=== PATIENT | female | born 1955 | race Caucasian/White ===

== ENCOUNTER 2018-06-04 11:08 | Emergency (ER) | payer MEDICARE ==
[~2018-06-04] VITALS: Ht 172.7 cm; Wt 108.0 kg
[2018-06-04] MEDS ORDERED: TRAMADOL HCL 50 MG TAB PO ONE (11:30)
[2018-06-04] MEDS ORDERED: TETANUS/DIPHTHERIA TOX ADULT 0.5 ML SYR IM ONE (11:30)
--- NOTE | 2018-06-04 12:47 | Diagnostic Imaging Report ---
EXAMINATION: Head and cervical spine CT without contrast. HISTORY: Status post fall in bathtub, head trauma, head and neck pain COMPARISON: None. TECHNIQUE: Multidetector axial images were obtained without contrast from the foramen magnum to the vertex and through the cervical spine. The images were reconstructed using brain and bone algorithms. Thin section brain images were reformatted into coronal and sagittal planes. HEAD CT FINDINGS: Skull: No lytic or blastic lesions. No fractures. Parenchyma: Few scattered white matter hypodensities, most likely nonspecific cystic chronic microvascular ischemic changes. No mass, hemorrhage or CT evidence of acute vascular insult. Brain volume: Normal for age. Ventricles: No hydrocephalus or displacement. Arteries: No density suggestive of thrombus. Dural sinuses: No abnormal density. Extra-axial spaces: No abnormal density. Foramen magnum: No mass, Chiari malformation, or basilar invagination. Sella: No obvious mass. Paranasal/mastoid sinuses: Imaged portions unremarkable. CERVICAL SPINE CT FINDINGS: Alignment:Normal alignment and lordosis. Soft tissues: Normal. Vertebrae: Normal height and density. No acute fracture, infection or neoplasm. Degenerative changes: C1-C2: Degenerative changes without stenosis. C2-C3: Bilateral facet arthrosis without stenoses C3-C4: Disc osteophyte complex formation, uncovertebral and facet arthrosis on the left. Severe left foraminal stenoses. C4-C5: Disc osteophyte complex formation, bilateral uncovertebral and facet arthrosis. Moderate foraminal stenoses worst on the left. C5-C6: Disc osteophyte complex formation, uncovertebral and facet arthrosis. Mild right and severe left foraminal stenoses C6-C7: Disc osteophyte complex formation, uncovertebral and facet arthrosis. Mild right foraminal stenoses C7-T1: Normal IMPRESSION: Head CT: 1. No acute postraumatic intracranial hemorrhage. 2. Mild chronic microvascular ischemic changes. Cervical spine CT: 1. No acute fractures or dislocations. 2. Chronic degenerative changes as described. Note: Acute post traumatic spinal cord, vascular or ligamentous injury cannot adequately be assessed with CT. Signed by: Dr. Anette Akers M.D. on 06/04/2018 12:43 PM
--- NOTE | 2018-06-04 12:48 | Diagnostic Imaging Report ---
PROCEDURE:X-RAY PELVIS, AP VIEW COMPARISON:None. INDICATIONS:FALL FINDINGS: There are no fractures, dislocations, lytic or blastic lesions. A right femoral prosthesis is visualized. Left hip joint space narrowing. The bones are demineralized. The soft-tissues are unremarkable. CONCLUSION: No acute bony abnormality. Andrey Ordoñez D.O. Dictated by: Andrey Ordoñez D.O. on 06/04/2018 at 12:53 Electronically approved by: Andrey Ordoñez D.O. on 06/04/2018 at 12:53
--- NOTE | 2018-06-04 12:54 | Diagnostic Imaging Report ---
PROCEDURE:KNEE THREE VIEWS BILATERAL COMPARISON:None. INDICATIONS:FALL FINDINGS: There are no fractures, dislocations, lytic or blastic lesions. Total knee replacement on both knees. The bones are demineralized. The soft-tissues are unremarkable. CONCLUSION: No acute bony abnormality. Andrey Ordoñez D.O. Dictated by: Andrey Ordoñez D.O. on 06/04/2018 at 12:58 Electronically approved by: Andrey Ordoñez D.O. on 06/04/2018 at 12:58
--- NOTE | 2018-06-04 13:00 | Diagnostic Imaging Report ---
PROCEDURE: Frontal and lateral views of the chest. COMPARISON: None. INDICATIONS: FALL FINDINGS: Lines/tubes: None. Lungs: The lungs are well inflated and clear. There is no evidence of pneumonia or pulmonary edema. Pleura: There is no pleural effusion or pneumothorax. Heart and mediastinum: The heart and the mediastinum are normal. Bones: No acute bony abnormality. Mild degenerative changes in the thoracic spine. IMPRESSION: 1. No acute cardiopulmonary disease. 2. No acute displaced fracture or dislocation, however, this is not a dedicated film for evaluation of the ribs. Isma Castro M.D. Dictated by: Isma Castro M.D. on 06/04/2018 at 13:05 Electronically approved by: Isma Castro M.D. on 06/04/2018 at 13:05
[2018-06-04 15:24] VITALS: BP 117/65
== END 2018-06-04 15:20 | disposition home or self-care (01) ==
LOC: ER 11:08
DX: S00.83XA Contusion of other part of head, initial encounter (principal); S01.81XA Laceration without foreign body of other part of head, initial encounter; M54.2 Cervicalgia; S16.1XXA Strain of muscle, fascia and tendon at neck level, initial encounter; S80.02XA Contusion of left knee, initial encounter; S80.01XA Contusion of right knee, initial encounter; W01.0XXA Fall on same level from slipping, tripping and stumbling without subsequent striking against object, initial encounter; Y92.003 Bedroom of unspecified non-institutional (private) residence as the place of occurrence of the external cause; I10 Essential (primary) hypertension; E03.9 Hypothyroidism, unspecified; K21.9 Gastro-esophageal reflux disease without esophagitis; F20.9 Schizophrenia, unspecified; Z86.73 Personal history of transient ischemic attack (TIA), and cerebral infarction without residual deficits
CPT/HCPCS: 70450; 71046; 72125; 72170; 90471; 90714; 99283

== ENCOUNTER 2018-11-02 16:58 | Emergency (ER) | payer MEDICARE ==
[~2018-11-02] VITALS: Ht 172.7 cm; Wt 108.0 kg
--- OUTSIDE RECORDS SUMMARY | 2018-11-02 17:02 | XMS REPORT | Continuity of Care Document ---
Author Author [facility] Interface Address Unknown Phone Unavailable Problems Problem Status Onset Date Classification Date Reported Comments Source Hypothyroidism Active Diagnosis 10/17/2018 [facility] Osteoarthritis of right hip Active Problem 10/17/2018 [facility] Esophageal reflux Active Diagnosis 10/17/2018 [facility] Major depressive disorder with single episode, remission status unspecified Active Problem 10/17/2018 [facility] Paranoid schizophrenia Active Problem 10/17/2018 [facility] Status post carpal tunnel release Active Problem 10/17/2018 [facility] History of prediabetes Active Problem 10/17/2018 [facility] History of right hip replacement Active Problem 10/17/2018 [facility] History of stroke Active Problem 10/17/2018 [facility] History of colon cancer Active Problem 10/17/2018 [facility] Postmenopausal Active Diagnosis 06/12/2017 [facility] Snoring Active Diagnosis 06/12/2017 [facility] Essential hypertension Active Problem 10/17/2018 [facility] Obesity Active Problem 10/17/2018 [facility] BMI 37.0-37.9, adult Active Diagnosis 05/30/2017 [facility] Schizophrenia Active Diagnosis 05/30/2017 [facility] Dysuria Active Diagnosis 11/04/2017 [facility] Malignant neoplasm of colon Active Problem 03/14/2017 [facility] Other syndromes affecting cervical region Active Problem 03/14/2017 [facility] Prediabetes Active Problem 03/14/2017 [facility] Excessive daytime sleepiness Active Problem 03/14/2017 [facility] Rash Active Diagnosis 03/14/2017 [facility] Ganglion cyst Active Diagnosis 03/14/2017 [facility] Dizziness Active Diagnosis 03/14/2017 [facility] Sleep apnea syndrome Active Problem 10/17/2018 [facility] SOUMYA Active Problem 10/17/2018 [facility] OAB Active Diagnosis 10/17/2018 [facility] Dependent edema Active Diagnosis 10/17/2018 [facility] Schizophrenia, unspecified type Active Problem 10/17/2018 [facility] Obstructive sleep apnea (pediatric) Active Problem 10/17/2018 [facility] Acute cystitis without hematuria Active Diagnosis 10/17/2018 [facility] History of CVA Active Diagnosis 10/17/2018 [facility] Dependence on other enabling machines and devices Active Problem 10/17/2018 [facility] Psychophysiological insomnia Active Problem 10/17/2018 [facility] Facial pain Active Diagnosis 07/12/2018 [facility] Lumbar pain Active Diagnosis 07/12/2018 [facility] Acute UTI Active Diagnosis 11/04/2017 [facility] Recurrent major depressive disorder, in partial remission Active Diagnosis 01/09/2018 [facility] UTI symptoms Active Diagnosis 03/13/2018 [facility] Lumbar back pain Active Diagnosis 09/27/2017 [facility] Pelvic pain Active Diagnosis 09/27/2017 [facility] Encounter for screening mammogram for malignant neoplasm of breast Active Diagnosis 09/27/2017 [facility] Encntr for general adult medical exam w/o abnormal findings Active Diagnosis 09/27/2017 [facility] Encounter for screening colonoscopy Active Diagnosis 09/27/2017 [facility] Depression Active Diagnosis 04/23/2016 [facility] Migraines Active Diagnosis 04/23/2016 [facility] Morbid obesity Active Diagnosis 04/23/2016 [facility] Body mass index of 40.1 to 44.9 in adult Active Diagnosis 04/23/2016 [facility] Preoperative clearance Active Diagnosis 04/23/2016 [facility] Skin infection Active Diagnosis 05/22/2016 [facility] S/P hip replacement Active Diagnosis 05/22/2016 [facility] Medications Medication Details Route Status Patient Instructions Ordering Provider Order Date Source Lasix 1 tablet Orally Active 20 mg Orally Once a day prn [facility] Burch 10/12/2018 [facility] Bactrim DS 1 tablet Orally Active 800-160 MG Orally Twice a day Olivier Burch 09/15/2018 [facility] Bactrim DS 1 tablet Orally Active 800-160 MG Orally Twice a day Martir 03/10/2018 [facility] Macrobid 1 capsule with food Orally Active 100 mg Orally twice a day Mike 10/31/2017 [facility] Cipro 1 tablet Orally Active 250 MG Orally every 12 hrs Mikey 05/27/2017 [facility] Clindamycin HCl 1 capsule Orally Active 300 MG Orally every 8 hrs Basurto 05/17/2016 [facility] [place] 3 1 capsule Orally Active 120-180 MG Orally Once a day Olivier Burch [facility] VESIcare 1 tablet Orally Active 10 MG Orally Once a day Olivier Burch [facility] Tramadol HCl 1 tablet on the tongue and allow to dissolve as needed Orally Active 50 MG Orally every four hours Olivier Burch [facility] Trazodone HCl 1 tablet at bedtime Orally Active 100 MG Orally Once a day Olivier Burch [facility] Horizant 1 tablet in the evening with food Orally Active 600 MG Orally Once a day Olivier Burch [facility] Aggrenox 1 capsule Orally Active 25-200 MG Orally once a day Martir [facility] Pantoprazole Sodium 1 tablet Orally Active 40 MG Orally Once a day Olivier Burch [facility] Aripiprazole 1 tablet Orally Active 30 MG Orally Once a day Olivier Burch [facility] Synthroid 1 tablet on an empty stomach in the morning Fri- Fri, 2 on Sun Orally Active 100 MCG Orally Once a day Mikey [facility] Multivitamin Adult not defined Orally Active - Orally [facility] Burch [facility] Verapamil HCl 1 tablet Orally Active 120 MG Orally daily Oliv[facility] Burch [facility] Topiramate 1 tablet Orally Active 50 MG Orally twice a day (bid) Olivier Burch [facility] Lorazepam 1 tablet as needed Orally Active 0.5 MG Orally every 6 hrs [facility] Cogentin 1 tablet at bedtime Orally Active 1 MG Orally once every night Oliv[facility] Burch [facility] Benztropine Mesylate 1 tablet at bedtime Orally Active 1 MG Orally Once a day [facility] Alive Womens 50+ not defined Orally Active Orally [facility] Cephalexin 1 capsule Orally Active 500 mg Orally Four times a day Carlos [facility] Hydrocodone-Acetaminophen 1 tablet as needed Orally Active 7.5- 325 MG Orally every 6 hrs [facility] Meloxicam 1 tablet Orally Active 15 MG Orally Once a day [facility] Potassium Chloride 1 capsule with food Orally Active 10 MEQ Orally Twice a day [facility] Topamax 1 tablet at bedtime Orally Active 100 MG Orally Once a day [facility] Aripiprazole 1 tablet Orally Active 10 MG Orally Once a day [facility] Zoloft 1 tablet Orally Active 50 MG Orally Once a day [facility] Trifluoperazine HCl 1 tablet Orally Active 5 MG Orally Once a day [facility] Topiramate 1 tablet Orally Active 100 MG Orally once every night [facility] Butalbital-Acetaminophen 1 tablet as needed Orally Active 50- 325 MG Orally every 4 hrs [facility] Ativan 1 tablet at bedtime as needed Orally Active 0.5 MG Orally Once a day [facility] B Complex not defined Orally Active Orally [facility] Lorazepam 1 tablet as needed Orally Active 0.5 MG Orally every 6 hrs [facility] Aripiprazole 1 tablet Orally Active 30 MG Orally Once a day [facility] Burch [facility] Topiramate 1 tablet Orally Active 50 MG Orally twice a day (bid) [facility] VESIcare 1 tablet Orally Active 10 MG Orally Once a day Oliv[facility] B[facility] Aggrenox 1 capsule Orally Active 25-200 MG Orally once a day Olivier Burch [facility] Synthroid 1 tablet on an empty stomach in the morning Fri- Fri, 2 on Sun Orally Active 100 MCG Orally Once a day [facility] Multivitamin Adult not defined Orally Active - Orally [facility] Calcium 1 tab Oral Active Oral [facility] Pantoprazole Sodium 1 tablet Orally Active 40 mg Orally twice a day (bid) [facility] Verapamil HCl 1 tablet Orally Active 120 MG Orally daily [facility] [place] Carbonate ER TK 2 TS PO HS Oral Active 300 MG Oral [facility] Duloxetine HCl 1 capsule Orally Active 30 mg Orally once a day [facility] Topiramate 1 tablet Orally Active 50 mg Orally twice a day (bid) [facility] Benztropine Mesylate TK 1 T PO QHS Oral Active 1 MG Oral [facility] Lyrica (Schedule V Drug) TK ONE C PO TID Orally Active 75 MG Orally twice a day (bid) [facility] Metoprolol Tartrate TAKE 1 T PO QAM Oral Active 25 MG Oral [facility] Trazodone HCl TAKE 1 T PO QHS Oral Active 100 mg Oral [facility] [place] Carbonate ER TK 2 TS PO HS Oral Active 300 MG Oral [facility] Lyrica (Schedule V Drug) TK ONE C PO TID Oral Active 50 mg Oral three times a day (tid) [facility] Duloxetine HCl 1 capsule Orally Active 30 mg Orally once a day [facility] Lyrica (Schedule V Drug) TK ONE C PO TID Oral Active 50 mg Oral three times a day (tid) Olivier [facility] [place] Carbonate ER TK 2 TS PO HS Oral Active 300 MG Oral Martir [facility] Topiramate 1 tablet Orally Active 50 mg Orally twice a day (bid) Martir [facility] Pristiq 1 tablet Orally Active 50 MG Orally Once a day [facility] Limbitrol 1 tablet Orally Active 5-12.5 MG Orally Twice a day [facility] Topamax 1 tablet at bedtime Orally Active 25 MG Orally Once a day Basurtocaity [facility] Lexapro 1 tablet Orally Active 20 mg Orally Once a day [facility] Cogentin 1 tablet at bedtime Orally Active 1 MG Orally Once a day Sb [facility] Nuedexta 1 capsule Orally No Longer Active 20-10 MG Orally every 12 hrs [facility] Diazepam & Diet Manage Prod Unknown Orally Active 5 MG Orally every day (qd) [facility] Ritalin 1 tablet Orally Active 10 MG Orally Twice a day [facility] Allergies, Adverse Reactions, Alerts Substance Category Reaction Severity Reaction type Status Date Reported Comments Source Zithromax Z-Lupillo Adverse Reaction Info Not Available Adverse Reaction Active 10/12/2018 [facility] Risperdal Adverse Reaction Info Not Available Adverse Reaction Active 10/12/2018 [facility] Iodine Adverse Reaction Info Not Available Adverse Reaction Active 10/12/2018 [facility] SHELLFISH Adverse Reaction Info Not Available Adverse Reaction Active 10/12/2018 [facility] Immunizations Immunization Date Given Site Status Last Updated Comments Source Results Order Name Results Value Reference Range Date Interpretation Comments Source Vital Signs Vital Sign Value Date Comments Source Weight 236 10/12/2018 [facility] Height 67 10/12/2018 [facility] Heart Rate 68 10/12/2018 [facility] Diastolic (mm Hg) 82 10/12/2018 [facility] Systolic (mm Hg) 134 10/12/2018 [facility] Weight 227 09/15/2018 [facility] Height 67 09/15/2018 [facility] Temperature Oral (F) 98.2 F 09/15/2018 [facility] Heart Rate 63 09/15/2018 [facility] Diastolic (mm Hg) 74 09/15/2018 [facility] Systolic (mm Hg) 134 09/15/2018 [facility] Weight 237 06/03/2018 [facility] Height 67 06/03/2018 [facility] Heart Rate 59 06/03/2018 [facility] Diastolic (mm Hg) 74 06/03/2018 [facility] Systolic (mm Hg) 128 06/03/2018 [facility] Weight 233 03/10/2018 [facility] Height 67 03/10/2018 [facility] Heart Rate 60 03/10/2018 [facility] Diastolic (mm Hg) 60 03/10/2018 [facility] Systolic (mm Hg) 130 03/10/2018 [facility] Weight 231 01/05/2018 [facility] Height 67 01/05/2018 [facility] Heart Rate 62 01/05/2018 [facility] Diastolic (mm Hg) 62 01/05/2018 [facility] Systolic (mm Hg) 112 01/05/2018 [facility] Weight 221 10/31/2017 [facility] Height 67 10/31/2017 [facility] Heart Rate 58 10/31/2017 [facility] Diastolic (mm Hg) 65 10/31/2017 [facility] Systolic (mm Hg) 130 10/31/2017 [facility] Weight 221 10/27/2017 [facility] Height 67 10/27/2017 [facility] Heart Rate 72 10/27/2017 [facility] Diastolic (mm Hg) 62 10/27/2017 [facility] Systolic (mm Hg) 130 10/27/2017 [facility] Weight 233 09/25/2017 [facility] Height 67 09/25/2017 [facility] Heart Rate 79 09/25/2017 [facility] Diastolic (mm Hg) 56 09/25/2017 [facility] Systolic (mm Hg) 138 09/25/2017 [facility] Weight 243 06/10/2017 [facility] Height 67 06/10/2017 [facility] Heart Rate 75 06/10/2017 [facility] Diastolic (mm Hg) 78 06/10/2017 [facility] Systolic (mm Hg) 142 06/10/2017 [facility] Weight 241 05/27/2017 [facility] Height 67 05/27/2017 [facility] Heart Rate 62 05/27/2017 [facility] Diastolic (mm Hg) 58 05/27/2017 [facility] Systolic (mm Hg) 120 05/27/2017 [facility] Weight 244 03/12/2017 [facility] Height 67 03/12/2017 [facility] Heart Rate 68 03/12/2017 [facility] Diastolic (mm Hg) 72 03/12/2017 [facility] Systolic (mm Hg) 124 03/12/2017 [facility] Weight 243 08/23/2016 [facility] Height 67 08/23/2016 [facility] Heart Rate 79 08/23/2016 [facility] Diastolic (mm Hg) 82 08/23/2016 [facility] Systolic (mm Hg) 138 08/23/2016 [facility] Weight 264 05/17/2016 [facility] Height 67 05/17/2016 [facility] Heart Rate 70 05/17/2016 [facility] Diastolic (mm Hg) 78 05/17/2016 [facility] Systolic (mm Hg) 150 05/17/2016 [facility] Weight 262 04/17/2016 [facility] Height 67 04/17/2016 [facility] Heart Rate 65 04/17/2016 [facility] Diastolic (mm Hg) 78 04/17/2016 [facility] Systolic (mm Hg) 140 04/17/2016 [facility] Encounters Location Location Details Encounter Type Encounter Number Reason For Visit Attending Provider ADM Date DC Date Status Source [facility] Physical & Medical clearance [id number] 04/17/2016 04/17/2016 [facility] Physical & Medical clearance [id number] 04/17/2016 04/17/2016 [facility] Physical & Medical clearance [id number] 04/17/2016 04/17/2016 [facility] Physical & Medical clearance [id number] 04/17/2016 04/17/2016 [facility] Physical & Medical clearance [id number] 04/17/2016 04/17/2016 [facility] SX clearance [id number] 04/18/2016 04/18/2016 [facility] SX clearance [id number] 04/18/2016 04/18/2016 [facility] SX clearance [id number] 04/18/2016 04/18/2016 [facility] possible hip infection (pt had a hip replacement) [id number] 05/17/2016 05/17/2016 [facility] possible hip infection (pt had a hip replacement) [id number] 05/17/2016 05/17/2016 [facility] Severe Pain [id number] 08/23/2016 08/23/2016 [facility] Procedures Procedure Code Date Perfomer Comments Source
--- OUTSIDE RECORDS SUMMARY | 2018-11-02 17:03 | XMS REPORT ---
Author Author Morgan Chand [facility] eClinicalWorks Address Unknown Phone Unavailable Care Team Providers Care Manager Of Broadcast Content Name Role Phone Morgan Chand Unavailable Allergies, Adverse Reactions, Alerts Substance Reaction Event Type Zithromax Z-Lupillo Info Not Available Drug Allergy Risperdal Info Not Available Drug Allergy Iodine Info Not Available Drug Allergy SHELLFISH Info Not Available Non Drug Allergy Problems Problem Type Condition Code Onset Dates Condition Status Problem History of stroke Z86.73 Active Problem Paranoid schizophrenia F20.0 Active Problem History of prediabetes Z87.898 Active Problem Dependence on other enabling machines and devices Z99.89 Active Problem Psychophysiological insomnia F51.04 Active Problem Obstructive sleep apnea (adult) (pediatric) G47.33 Active Problem Major depressive disorder with single episode, remission status unspecified F32.9 Active Problem Status post carpal tunnel release Z98.890 Active Problem SOUMYA (obstructive sleep apnea) G47.33 Active Problem Sleep apnea syndrome G47.30 Active Assessment Facial pain R51 Active Problem Obesity E66.9 Active Assessment Lumbar pain M54.5 Active Problem Esophageal reflux K21.9 Active Problem Osteoarthritis of right hip M16.11 Active Problem Hypothyroidism E03.9 Active Problem History of right hip replacement Z96.641 Active Problem Essential hypertension I10 Active Problem History of colon cancer Z85.038 Active Medications Medication Code System Code Instructions Start Date End Date Status Dosage [place] Carbonate ER [facility] 09919405183 300 MG Oral Active TK 2 TS PO HS Aripiprazole [facility] 47072588431 30 MG Orally Once a day Active 1 tablet VESIcare [facility] 60990461626 10 MG Orally Once a day Active 1 tablet Multivitamin Adult [facility] 47207189809 - Orally Active not defined Lorazepam [facility] 49246415655 0.5 MG Orally every 6 hrs Active 1 tablet as needed Topiramate [facility] 50080669443 50 mg Orally twice a day (bid) Active 1 tablet Synthroid [facility] 32726769332 100 MCG Orally Once a day Active 1 tablet on an empty stomach in the morning Mon-Fri, 2 on Sun Aggrenox [facility] 85364799239 25-200 MG Orally once a day Active 1 capsule Calcium NDC 0 Oral Active 1 tab Cogentin [facility] [address]-34 1 MG Orally once every night Active 1 tablet at bedtime Lyrica [facility] 43462619948 50 mg Oral three times a day (tid) Active (Schedule V Drug) TK ONE C PO TID Duloxetine HCl [facility] 08744959670 30 mg Orally once a day Active 1 capsule Pantoprazole Sodium [facility] 06365738223 40 MG Orally Once a day Active 1 tablet Vital Signs Date/Time: June 03, 2018 BMI 37.12 Index Weight 237 lbs Height 67 in Cardiac Monitoring Heart Rate 59 /min Blood Pressure Diastolic 74 mm Hg Blood Pressure Systolic 128 mm Hg Results No Known Results Summary Purpose eClinicalWorks Submission
--- OUTSIDE RECORDS SUMMARY | 2018-11-02 17:03 | XMS REPORT ---
Author Author Alfreda Veras [facility] eClinicalWorks Address Unknown Phone Unavailable Care Team Providers Care Grounds Crew Supervisor Name Role Phone Alfreda Veras CP Unavailable Allergies, Adverse Reactions, Alerts Substance Reaction Event Type Zithromax Z-Lupillo Info Not Available Drug Allergy Risperdal Info Not Available Drug Allergy Iodine Info Not Available Drug Allergy SHELLFISH Info Not Available Non Drug Allergy Problems Problem Type Condition Code Onset Dates Condition Status Problem History of prediabetes Z87.898 Active Problem Status post carpal tunnel release Z98.890 Active Problem Paranoid schizophrenia F20.0 Active Problem Obstructive sleep apnea (adult) (pediatric) G47.33 Active Assessment Hypothyroidism E03.9 Active Problem Dependence on other enabling machines and devices Z99.89 Active Assessment Acute cystitis without hematuria N30.00 Active Problem Schizophrenia, unspecified type F20.9 Active Problem Sleep apnea syndrome G47.30 Active Problem Major depressive disorder with single episode, remission status unspecified F32.9 Active Problem Psychophysiological insomnia F51.04 Active Problem SOUMYA (obstructive sleep apnea) G47.33 Active Problem Obesity E66.9 Active Problem Hypothyroidism E03.9 Active Assessment Schizophrenia, unspecified type F20.9 Active Problem Osteoarthritis of right hip M16.11 Active Problem History of right hip replacement Z96.641 Active Problem Essential hypertension I10 Active Problem History of colon cancer Z85.038 Active Problem Esophageal reflux K21.9 Active Problem History of stroke Z86.73 Active Medications Medication Code System Code Instructions Start Date End Date Status Dosage Pantoprazole Sodium ND 43089739260 40 MG Orally Once a day Active 1 tablet Topiramate ND 10406387802 50 mg Orally twice a day (bid) Active 1 [place] [address]-98 1 MG Orally once every night Active 1 tablet at bedtime Lyrica ND 76887682422 50 mg Oral three times a day (tid) Active (Schedule V Drug) TK ONE C PO TID Lorazepam ND 48964633195 0.5 MG Orally every 6 hrs Active 1 tablet as needed Aggrenox [facility] 23978565080 25-200 MG Orally once a day Active 1 capsule [place] Carbonate ER ND 60809756165 300 MG Oral Active TK 2 TS PO HS Synthroid ND 12083102759 100 MCG Orally Once a day Active 1 tablet on an empty stomach in the morning Mon-Fri, 2 on Sun Multivitamin Adult ND 26602629644 - Orally Active not defined Aripiprazole ND 02060650040 30 MG Orally Once a day Active 1 tablet Synthroid ND 39013228481 100 MCG Orally Once a day Active 1 tablet on an empty stomach in the morning Fri-Fri, 2 on Sun Calcium NDC 0 Oral Active 1 tab Bactrim DS [facility] 32416837714 800-160 MG Orally Twice a day Sep 15, 2018 Sep 25, 2018 Active 1 tablet VESIcare [facility] 15352321392 10 MG Orally Once a day Active 1 tablet Duloxetine HCl [facility] 92847577657 30 mg Orally once a day Active 1 capsule Vital Signs Date/Time: Sep 15, 2018 BMI 35.55 Index Weight 227 lbs Height 67 in Temperature 98.2 F Cardiac Monitoring Heart Rate 63 /min Blood Pressure Diastolic 74 mm Hg Blood Pressure Systolic 134 mm Hg Results Name Result Date Reference Range Unit Abnormality Flag URINE AUTO W/O SCOPE ----Spec [place] 1.025 20180920 ----Turbidity cloudy 20180920 ----Glucose neg 20180920 ----Ketones small 20180920 ----Blood small+ 20180920 ----Bili small+ 20180920 ----Color yellow 20180920 ----pH 6.0 20180920 ----Leuk Est small+ 20180920 ----Nitrite positive 20180920 ----Urobilinogen 0.2 20180920 ----Protein trace [id number] Urine Culture, Routine ----Result 1 Escherichia coli [id number] ----Antimicrobial Susceptibility Comment [id number] ----Urine Culture, Routine Final report [id number] A Summary Purpose eClinicalWorks Submission
--- OUTSIDE RECORDS SUMMARY | 2018-11-02 17:03 | XMS REPORT | Summary of Care ---
Author Author MARY Cruz, RUTHIE Organization Unknown Address Unknown Phone Unavailable Care Team Providers Care Cv Tech Name Role Phone DE MORGAN Verduzco, PHD, JOSEPH Unavailable Unavailable MARY Cruz, RUTHIE Unavailable Unavailable [facility] Unavailable Unavailable GUZMAN [employer] [place], FLORESITA Unavailable Unavailable Unavailable Unavailable Functional Status Name Dates Details Functional status health issues are not documented Status: Name Dates Details Cognitive status health issues are not documented Status: Problems Name Dates Details Dizziness (780.4, R42) Status: Active Excessive daytime sleepiness (780.54, G47.19) Status: Active Obesity (278.00, E66.9) Status: Active Obstructive sleep apnea (327.23, G47.33) Status: Active Painful hip (719.45, M25.559) Status: Active Preoperative clearance (V72.84, Z01.818) Status: Active Thyroid disorder (246.9, E07.9) Status: Active Influenza vaccination declined (V64.06, Z28.21) Status: Active Refuses tetanus, diphtheria, and acellular pertussis (Tdap) vaccination (V64.06, Z28.21) Status: Active Psychotic episode (298.9, F23) Status: Active Schizoaffective disorder (295.70, F25.9) Status: Active Medications Name Dates Details Protonix 40 MG Oral Packet Active Multi Vitamin/Minerals TABS * Refills: 0 Active Stool Softener 100 MG Oral Capsule TAKE 1 CAPSULE TWICE DAILY NEEDED. * Refills: 0 * Start : 19-Apr-2016 Active Topamax 50 MG Oral Tablet TAKE 1 TABLET TWICE DAILY. * Quantity: 60 Refills: 0 * Start : 19-Apr-2016 Active Synthroid 100 MCG Oral Tablet TAKE 1 TABLET DAILY. * Refills: 0 * Start : 25-Apr-2016 Active VESIcare 10 MG Oral Tablet * Refills: 0 Active ARIPiprazole 30 MG Oral Tablet TAKE 1 TABLET BY MOUTH EVERY DAY * Quantity: 90 Refills: 0 RUIZ M.D., PHD, JOSEPH * Start : 11-Feb-2017 Active TraMADol HCl - 50 MG Oral Tablet TAKE 1 TABLET 3 TIMES DAILY NEEDED. * Refills: 0 Active Lyrica 50 MG Oral Capsule * Refills: 0 Active Duexis 800-26.6 MG Oral Tablet * Refills: 0 Active Sulfamethoxazole-Trimethoprim 800-160 MG Oral Tablet * Refills: 0 Active [place] 10-325 MG Oral Tablet * Refills: 0 Active Abilify Maintena 400 MG Intramuscular Suspension Reconstituted ER Administer 1 shot every four weeks, 400 mg, to be administered at [facility] * Quantity: 1 Refills: 3 RUIZ M.D., PHD, JOSEPH * Start : 01-Oct-2018 Active Abilify Maintena 400 MG Intramuscular Suspension Reconstituted ER Administer 1 shot every four weeks, 400 mg, to be administered at [facility] * Quantity: 1 Refills: 3 RUIZ M.D., PHD, JOSEPH * Start : 20-Oct-2018 Active Allergies and Adverse Reactions Name Dates Details RisperDAL TABS (Allergy) Status: Active Shellfish-derived Products (Allergy) Status: Active Past Medical History Name Dates Details History of Colon Cancer (V10.05) Status: Resolved History of Depressive disorder (311, F32.9) Status: Resolved History of esophageal reflux (V12.79, Z87.19) Status: Resolved History of essential hypertension (V12.59, Z86.79) Status: Resolved History of Schizophrenia (V11.0) Status: Resolved History of Stroke syndrome Status: Resolved Procedures Procedure Dates Details History of Knee Surgery Completed History of Colon Surgery Completed History of Tubal Ligation Completed History of Surgically Induced Completed Immunization Name Dates Details Fluzone Quadrivalent 0.5 ML Intramuscular Suspension Comments: DECLINED Tdap (Boostrix) Comments: DECLINED Family History Name Dates Details Family history of Depression Comments: Family History Status: Active Family history of Colon Cancer (V16.0) Comments: Family History Status: Active Family history of Leukemia (V16.6) Comments: Family History Status: Active Family history of Rheumatoid Arthritis Comments: Family History Status: Active Family history of Hypertension (V17.49) Comments: Family History Status: Active Name Dates Details No pertinent family history (V49.89, Z78.9) Status: Active Social History Name Dates Details - Status: Name Dates Details Former smoker Never smoker Vital Signs Date Test Result Details [id number] BP Systolic 149 mm[Hg] Status: BP Diastolic 79 mm[Hg] Status: Height 68 in Status: Weight 234 lb Status: Body Mass Index Calculated 35.58 kg/m2 Status: Body Surface Area Calculated 2.18 m2 Status: Heart Rate 118 /min Status: Results Date Description Value Details Results not documented Plan of Care Name Dates Details Planned Observations Planned Goals not documented Instructions Name Dates Details Instructions not documented Encounters Appointment; NGHIA GRIFFIN M.D. Encounter Diagnosis: Problem not documented On: 11-Dec-2016 9:30 Appointment; NGHIA GRIFFIN M.D. Encounter Diagnosis: Problem not documented On: 11-Feb-2017 15:00 Appointment; LOGAN DRISCOLL M.D. Encounter Diagnosis: Problem not documented On: 03-Apr-2017 9:30 Appointment; LOGAN DRISCOLL M.D. Encounter Diagnosis: Problem not documented On: 03-Apr-2017 12:00 Appointment; STEPHANIE GOMEZ Encounter Diagnosis: Problem not documented On: 09-Apr-2017 14:00 Appointment; RUTHIE HERNANDEZ NP Encounter Diagnosis: Problem not documented On: 10-Apr-2017 13:30 Appointment; NGHIA GRIFFIN M.D. Encounter Diagnosis: Problem not documented On: 16-Apr-2017 8:00 Appointment; NGHIA GRIFFIN M.D. Encounter Diagnosis: Problem not documented On: 13-May-2017 11:30 Appointment; LOGAN DRISCOLL M.D. Encounter Diagnosis: Problem not documented On: 15-May-2017 15:00 Appointment; FLORESITA GUZMAN LCSW Encounter Diagnosis: Problem not documented On: 11-Jun-2017 10:45 Appointment; FLORESITA GUZMAN LCSW Encounter Diagnosis: Problem not documented On: 25-Jun-2017 12:00 Appointment; FLORESITA GUZMAN LCSW Encounter Diagnosis: Problem not documented On: 03-Jul-2017 8:45 Appointment; FLORESITA GUZMAN [employer] TRA[employer]ER Encounter Diagnosis: Problem not documented On: 17-Jul-2017 11:00 Appointment; FLORESITA GUZMAN LCSW Encounter Diagnosis: Problem not documented On: 15-Aug-2017 12:45 Appointment; FLORESITA GUZMAN LCSW Encounter Diagnosis: Problem not documented On: 20-Aug-2017 8:45 Appointment; FLORESITA GUZMAN LCSW Encounter Diagnosis: Problem not documented On: 27-Aug-2017 10:15 Appointment; NGHIA GRIFFIN M.D. Encounter Diagnosis: Problem not documented On: 22-Sep-2017 10:30 Appointment; FLORESITA GUZMAN LCSW Encounter Diagnosis: Problem not documented On: 13-Oct-2017 12:00 Appointment; NGHIA GRIFFIN M.D. Encounter Diagnosis: Problem not documented On: 04-Nov-2017 15:30 Appointment; LOGAN DRISCOLL M.D. Encounter Diagnosis: Problem not documented On: 13-Nov-2017 13:30 Appointment; JOHNATHON MONROE LCSW Encounter Diagnosis: Problem not documented On: 16-Dec-2017 14:00 Appointment; NGHIA GRIFFIN M.D. Encounter Diagnosis: Problem not documented On: 22-Dec-2017 8:30 Appointment; JOHNATHON MONROE LCSW Encounter Diagnosis: Problem not documented On: 14-Jan-2018 11:00 Appointment; NGHIA GRIFFIN M.D. Encounter Diagnosis: Problem not documented On: 24-Feb-2018 11:30 Appointment; NGHIA GRIFFIN M.D. Encounter Diagnosis: Problem not documented On: 25-Feb-2018 8:30 Appointment; NGHIA GRIFFIN M.D. Encounter Diagnosis: Problem not documented On: 02-Mar-2018 10:00 Appointment; JOHNATHON MONROE LCSW Encounter Diagnosis: Problem not documented On: 03-Mar-2018 17:00 Appointment; NGHIA GRIFFIN M.D. Encounter Diagnosis: Problem not documented On: 09-Mar-2018 9:00 Appointment; NGHIA GRIFFIN M.D. Encounter Diagnosis: Problem not documented On: 23-Mar-2018 10:30 Appointment; JOHNATHON MONROE LCSW Encounter Diagnosis: Problem not documented On: 07-Apr-2018 14:00 Appointment; NGHIA GRIFFIN M.D. Encounter Diagnosis: Problem not documented On: 18-May-2018 10:00 Appointment; JOHNATHON MONROE LCSW Encounter Diagnosis: Problem not documented On: 19-Jun-2018 9:00 Appointment; JOHNATHON MONROE LCSW Encounter Diagnosis: Problem not documented On: 10-Jul-2018 13:00 Appointment; NGHIA GRIFFIN M.D. Encounter Diagnosis: Problem not documented On: 21-Jul-2018 10:00 Appointment; JOHNATHON MONROE LCSW Encounter Diagnosis: Problem not documented On: 18-Aug-2018 13:00 Appointment; RUTHIE HERNANDEZ NP Encounter Diagnosis: Problem not documented On: 03-Sep-2018 12:00
--- OUTSIDE RECORDS SUMMARY | 2018-11-02 17:03 | XMS REPORT ---
[facility] Address Unknown Phone Unavailable Care Team Providers Care Special Needs Teacher Name Role Phone Michelle BRAVO Unavailable Unavailable Payers Payer Name Policy Type Policy Number Effective Date Expiration Date Problems This patient has no known problems. Allergies, Adverse Reactions, Alerts Allergy Name Allergy Type Status Severity Reaction(s) Onset Date Inactive Date Treating Clinician Comments iodine DA Active OR 2018-08-21 00:00:00 risperidone DA Active OR 2018-08-21 00:00:00 shellfish derived DA Active SV 2018-08-21 00:00:00 iodine DA Active OR 2016-02-25 00:00:00 risperidone DA Active OR 2016-02-25 00:00:00 shellfish derived DA Active SV 2016-02-25 00:00:00 Medications This patient has no known medications. Results Test Description Test Time Test Comments Text Results Atomic Results Result Comments CHEST 2 VIEWS 2018-06-04 13:05:00 [place] [address] Patient Name: ARACELI KAYE MR #: [id number] : 1955 Age/Sex: 63/F Req #: [id number] Adm Physician: Ordered by: ULISES LANCASTER W[employer]SHIELD REPAIR TECHNICIAN Report #: [id number] Location: ER Room/Bed: Procedure: [id number] DX/CHEST 2 VIEWS Exam Date: 06/04/18 Exam Time: 1200 REPORT STATUS: Signed PROCEDURE: Frontal and lateral views of the chest. COMPARISON: None. INDICATIONS: FALL FINDINGS: Lines/tubes: None. Lungs: The lungs are well inflated and clear. There is no evidence of pneumonia or pulmonary edema. Pleura: There is no pleural effusion or pneumothorax. Heart and mediastinum: The heart and the mediastinum are normal. Bones: No acute bony abnormality. Mild degenerative changes in the thoracic spine. IMPRESSION: 1. No acute cardiopulmonary disease. 2. No acute displaced fracture or dislocation, however, this is not a dedicated film for evaluation of the ribs. Allison Castro M.D. Dictated by: Allison Castro M.D. on 06/04/2018 at 13:05 Electronically approved by: Allison Castro M.D. on 06/04/2018 at 13:05 Dictated By: ALLISON CASTRO MD 1305 Transcribed By: SHELDON on 06/04/18 1305 COPY TO: ULISES LANCASTER WINDSHIELD REPAIR TECHNICIAN KNEE THREE VIEWS BILATERAL 2018-06-04 12:58:00 [place] [address] Patient Name: ARACELI KAYE MR #: [id number] : 1955 Age/Sex: 63/F Req #: [id number] Adm Physician: Ordered by: ULISES LANCASTER W[employer]SHIELD REPAIR TECHNICIAN Report #: [id number] Location: ER Room/Bed: Procedure: [id number] DX/KNEE THREE VIEWS BILATERAL Exam Date: 06/04/18 Exam Time: 1200 REPORT STATUS: Signed PROCEDURE: KNEE THREE VIEWS BILATERAL COMPARISON: None. INDICATIONS: FALL FINDINGS: There are no fractures, dislocations, lytic or blastic lesions. Total knee replacement on both knees. The bones are demineralized. The soft-tissues are unremarkable. CONCLUSION: No acute bony abnormality. Denise Ordoñez D.O. Dictated by: Denise Ordoñez D.O. on 06/04/2018 at 12:58 Electronically approved by: Denise Ordoñez D.O. on 06/04/2018 at 12:58 Dictated By: DENISE ORDOÑEZ DO 1258 Transcribed By: SHELDON on 06/04/18 1258 COPY TO: ULISES LANCASTER NP PELVIS AP 1-2 VIEWS 2018-06-04 12:53:00 [place] [address] Patient Name: ARACELI KAYE MR #: [id number] : 1955 Age/Sex: 63/F Req #: [id number] [facility] Physician: Ordered by: ULISES LANCASTER NP Report #: [id number] Location: ER Room/Bed: Procedure: DX/PELVIS AP 1-2 VIEWS Exam Date: 06/04/18 Exam Time: 1200 REPORT STATUS: Signed PROCEDURE: X-RAY PELVIS, AP VIEW COMPARISON: None. INDICATIONS: FALL FINDINGS: There are no fractures, dislocations, lytic or blastic lesions. A right femoral prosthesis is visualized. Left hip joint space narrowing. The bones are demineralized. The soft-tissues are unremarkable. CONCLUSION: No acute bony abnormality. Denise Ordoñez D.O. Dictated by: Denise Ordoñez D.O. on 06/04/2018 at 12:53 Electronically approved by: Denise Ordoñez D.O. on 06/04/2018 at 12:53 Dictated By: DENISE ORDOÑEZ DO 1253 Transcribed By: SHELDON on 06/04/18 1253 COPY TO: ULISES LANCASTER W[employer]SHIELD REPAIR TECHNICIAN CT CERVICAL SPINE WO 2018-06-04 12:39:00 [place] [address] Patient Name: ARACELI KAYE MR #: [id number] : 1955 Age/Sex: 63/F Req #: [id number] Adm Physician: Ordered by: ULISES LANCASTER W[employer]SHIELD REPAIR TECHNICIAN Report #: [id number] Location: ER Room/Bed: Procedure: [id number] CT/CT CERVICAL SPINE WO Exam Date: 06/04/18 Exam Time: 1150 REPORT STATUS: Signed ADDENDUM #1 Dose modulation, iterative reconstruction, and/or weight based adjustment of the mA/kV was utilized to reduce the radiation dose to as low as reasonably achievable. Signed by: Dr. Anibal Akers M.D. on 07/07/2018 11:52 AM ORIGINAL REPORT EXAMINATION: Head and cervical spine CT without contrast. HISTORY: Status post fall in bathtub, head trauma, head and neck pain COMPARISON: None. TECHNIQUE: Multidetector axial images were obtained without contrast from the foramen magnum to the vertex and through the cervical spine. The images were reconstructed using brain and bone algorithms. Thin section brain images were reformatted into coronal and sagittal planes. HEAD CT FINDINGS: Skull: No lytic or blastic lesions. No fractures. Parenchyma: Few scattered white matter hypodensities, most likely nonspecific cystic chronic microvascular ischemic changes. No mass, hemorrhage or CT evidence of acute vascular insult. Brain volume: Normal for age. Ventricles: No hydrocephalus or displacement. Arteries: No density suggestive of thrombus. Dural sinuses: No abnormal density. Extra-axial spaces : No abnormal density. Foramen magnum: No mass, Chiari malformation, or basilar invagination. Sella: No obvious mass. Paranasal/mastoid sinuses: Imaged portions unremarkable. CERVICAL SPINE CT FINDINGS: Alignment:Normal alignment and lordosis. Soft tissues: Normal. Vertebrae: Normal height and density. No acute fracture, infection or neoplasm. Degenerative changes: C1-C2: Degenerative changes without stenosis. C2-C3: Bilateral facet arthrosis without stenoses C3-C4: Disc osteophyte complex formation, uncovertebral and facet arthrosis on the left. Severe left foraminal stenoses. C4-C5: Disc osteophyte complex formation, bilateral uncovertebral and facet arthrosis. Moderate foraminal stenoses worst on the left. C5-C6: Disc osteophyte complex formation, uncovertebral and facet arthrosis. Mild right and severe left foraminal stenoses C6-C7: Disc osteophyte complex formation, uncovertebral and facet arthrosis. Mild right foraminal stenoses C7-T1: Normal IMPRESSION: Head CT: 1. No acute postraumatic intracranial hemorrhage. 2. Mild chronic microvascular ischemic changes. Cervical spine CT: 1. No acute fractures or dislocations. 2. Chronic degenerative changes as described. Note: Acute post traumatic spinal cord, vascular or ligamentous injury cannot adequately be assessed with CT. Signed by: Dr. Anibal Akers M.D. on 06/04/2018 12:43 PM Dictated By: ANIBAL AKERS MD 6320 Transcribed By: JAYDEN on 06/04/18 124 COPY TO: ULISES LANCASTER NP CT BRAIN WO 2018-06-04 12:39:00 [address], [place] [address] Patient Name: ARACELI KAYE MR #: [id number] : 1955 Age/[facility]: 63[id number] Req #: [id number] [facility] Physician: Ordered by: ULISES LANCASTER NP Report #: [id number] Location: ER Room/Bed: Procedure: [id number] CT/CT BRAIN WO Exam Date: 06/04/18 Exam Time: 1150 REPORT STATUS: Signed ADDENDUM #1 Dose modulation, iterative reconstruction, and/or weight based adjustment of the mA/kV was utilized to reduce the radiation dose to as low as reasonably achievable. Signed by: Dr. Anibal Akers M.D. on 07/07/2018 11:52 AM ORIGINAL REPORT EXAMINATION: Head and cervical spine CT without contrast. HISTORY: Status post fall in bathtub, head trauma, head and neck pain COMPARISON: None. TECHNIQUE: Multidetector axial images were obtained without contrast from the foramen magnum to the vertex and through the cervical spine. The images were reconstructed using brain and bone algorithms. Thin section brain images were reformatted into coronal and sagittal planes. HEAD CT FINDINGS: Skull: No lytic or blastic lesions. No fractures. Parenchyma: Few scattered white matter hypodensities, most likely nonspecific cystic chronic microvascular ischemic changes. No mass, hemorrhage or CT evidence of acute vascular insult. Brain volume: Normal for age. Ventricles: No hydrocephalus or displacement. Arteries: No density suggestive of thrombus. Dural sinuses: No abnormal density. Extra-axial spaces: No abnormal density. Foramen magnum: No mass, Chiari malformation, or basilar invagination. Sella: No obvious mass. Paranasal/mastoid sinuses: Imaged portions unremarkable. CERVICAL SPINE CT FINDINGS: Alignment:Normal alignment and lordosis. Soft tissues: Normal. Vertebrae: Normal height and density. No acute fracture, infection or neoplasm. Degenerative changes: C1-C2: Degenerative changes without stenosis. C2-C3: Bilateral facet arthrosis without stenoses C3-C4: Disc osteophyte complex formation, uncovertebral and facet arthrosis on the left. Severe left foraminal stenoses. C4-C5: Disc osteophyte complex formation, bilateral uncovertebral and facet arthrosis. Moderate foraminal stenoses worst on the left. C5-C6: Disc osteophyte complex formation, uncovertebral and facet arthrosis. Mild right and severe left foraminal stenoses C6-C7: Disc osteophyte complex formation, uncovertebral and facet arthrosis. Mild right foraminal stenoses C7-T1: Normal IMPRESSION: Head CT: 1. No acute postraumatic intracranial hemorrhage. 2. Mild chronic microvascular ischemic changes. Cervical spine CT: 1. No acute fractures or dislocations. 2. Chronic degenerative changes as described. Note: Acute post traumatic spinal cord, vascular or ligamentous injury cannot adequately be assessed with CT. Signed by: Dr. Anibal Akers M.D. on 06/04/2018 12:43 PM Dictated By: ANIBAL AKERS MD 1152 Transcribed By: JAYDEN on 06/04/18 1243 COPY TO: ULISES LANCASTER NP
--- OUTSIDE RECORDS SUMMARY | 2018-11-02 17:03 | XMS REPORT ---
Author Author Alfreda Veras [facility] e[employer] Address Unknown Phone Unavailable Care Team Providers Care Custodian Athletic Equipment Name Role Phone Alfreda Veras CP Unavailable Allergies, Adverse Reactions, Alerts Substance Reaction Event Type Zithromax Z-Lupillo Info Not Available Drug Allergy Risperdal Info Not Available Drug Allergy Iodine Info Not Available Drug Allergy SHELLFISH Info Not Available Non Drug Allergy Problems Problem Type Condition Code Onset Dates Condition Status Assessment OAB (overactive bladder) N32.81 Active Assessment Dependent edema R60.9 Active Problem History of stroke Z86.73 Active Assessment Hypothyroidism E03.9 Active Problem Paranoid schizophrenia F20.0 Active Assessment Esophageal reflux K21.9 Active Problem History of prediabetes Z87.898 Active Problem Major depressive disorder with single episode, remission status unspecified F32.9 Active Problem Status post carpal tunnel release Z98.890 Active Problem Schizophrenia, unspecified type F20.9 Active Problem Obstructive sleep apnea (adult) (pediatric) G47.33 Active Assessment Paranoid schizophrenia F20.0 Active Assessment Acute cystitis without hematuria N30.00 Active Problem OAB (overactive bladder) N32.81 Active Assessment History of CVA (cerebrovascular accident) Z86.73 Active Problem SOUMYA (obstructive sleep apnea) G47.33 Active Problem Sleep apnea syndrome G47.30 Active Problem Dependence on other enabling machines and devices Z99.89 Active Problem Psychophysiological insomnia F51.04 Active Problem Essential hypertension I10 Active Problem Esophageal reflux K21.9 Active Problem Obesity E66.9 Active Problem History of right hip replacement Z96.641 Active Problem History of colon cancer Z85.038 Active Problem Hypothyroidism E03.9 Active Problem Osteoarthritis of right hip M16.11 Active Medications Medication Code System Code Instructions Start Date End Date Status Dosage Lorazepam NDC 39976636244 0.5 MG Orally every 6 hrs Inactive 1 tablet as needed N[place] Carbonate ER ND 47435017497 300 MG Oral Inactive TK 2 TS PO HS Synthroid NDC 49680098675 100 MCG Orally Once a day Active 1 tablet on an empty stomach in the morning Mon-Sat, 2 on Sun Duloxetine HCl ND 60074525981 30 mg Orally once a day Active 1 capsule Lasix ND 80822126810 20 mg Orally Once a day prn Oct 12, 2018 Active 1 tablet Topiramate ND 42177981490 50 mg Orally twice a day (bid) Active 1 tablet Benztropine Mesylate ND 71850892800 1 MG Oral Active TK 1 T PO QHS Pantoprazole Sodium ND 82468710004 40 mg Orally twice a day (bid) Active 1 tablet VESIcare ND 86811977139 10 MG Orally Once a day Inactive 1 tablet Aggrenox ND 78264383669 25-200 MG Orally once a day Inactive 1 capsule Lyrica ND 94546880994 75 MG Orally twice a day (bid) Active (Schedule V Drug) TK ONE C PO TID Aripiprazole ND 56331253024 30 MG Orally Once a day Active 1 tablet Metoprolol Tartrate ND 50095022069 25 MG Oral Inactive TAKE 1 T PO QAM Multivitamin Adult [facility] 22715662294 - Orally Active not defined Trazodone HCl [facility] 05882825771 100 mg Oral Active TAKE 1 T PO QHS Vital Signs Date/Time: Oct 12, 2018 BMI 36.96 Index Weight 236 lbs Height 67 in Cardiac Monitoring Heart Rate 68 /min Blood Pressure Diastolic 82 mm Hg Blood Pressure Systolic 134 mm Hg Results No Known Results Summary Purpose eClinicalWorks Submission
--- NOTE | 2018-11-02 19:26 | Diagnostic Imaging Report ---
Elbow, Complete, right CPT code: 86801 History: Fall Technique: Three views of the right elbow were performed. Findings: The osseous structures are well-developed and mineralized without evidence of fracture, dislocation, focal osseous lesion. No joint effusion. No radiopaque foreign bodies in the soft tissues. IMPRESSION: No osseous injury. Signed by: Dr. Aubrie Antoine MD on 11/02/2018 7:23 PM
--- NOTE | 2018-11-02 19:30 | Diagnostic Imaging Report ---
Hip complete Indication: Fall Technique: AP and frogleg views of right hip obtained. Comparison: None Findings: Right hip arthroplasty is in anatomic alignment without associated fracture. Adjacent pubic rami appear intact. Lower lumbar spine demonstrates no abnormalities. There are mild degenerative changes of the left hip. No associated fracture. No diastases of the sacroiliac joints or pubic symphysis. IMPRESSION: Right hip prosthesis properly located without associated fracture. No fracture or dislocation elsewhere. Signed by: Dr. Aubrie Antoine MD on 11/02/2018 7:26 PM
--- NOTE | 2018-11-02 20:12 | Diagnostic Imaging Report ---
Femur right CPT code: 28239 Indication: Fall Technique: AP and lateral views of right femur obtained Comparison: None Findings: There are hip and knee prostheses are in anatomic alignment without associated fracture. There is no fracture of the femur or proximal tibia or fibula. No radiopaque foreign bodies in the soft tissues. IMPRESSION: No acute traumatic pathology. No abnormalities associated with the hip or knee prostheses. Signed by: Dr. Aubrie Antoine MD on 11/02/2018 8:09 PM
--- NOTE | 2018-11-02 20:13 | Diagnostic Imaging Report ---
Knee limited right CPT code: 10834 Indication: Fall Technique: AP and lateral view obtained of the right knee. Comparison: Femur x-rays obtained the same time Findings: Right knee prosthesis is in anatomic alignment without associated fracture or lucency to suggest loosening. Visualized portions of the femur, tibia, and fibula are intact. No joint effusion. No radiopaque foreign bodies in the soft tissues. IMPRESSION: No acute traumatic pathology. Signed by: Dr. Aubrie Antoine MD on 11/02/2018 8:10 PM
[2018-11-02] MEDS ORDERED: HYDROCODONE/APAP 5MG-325MG TAB PO NR (20:45)
[2018-11-02 21:40] VITALS: BP 158/67
== END 2018-11-02 22:00 | disposition home or self-care (01) ==
LOC: ER 16:58
DX: S50.311A Abrasion of right elbow, initial encounter (principal); M25.551 Pain in right hip; M79.651 Pain in right thigh; W01.0XXA Fall on same level from slipping, tripping and stumbling without subsequent striking against object, initial encounter; Y92.008 Other place in unspecified non-institutional (private) residence as the place of occurrence of the external cause; I10 Essential (primary) hypertension; E07.9 Disorder of thyroid, unspecified; K21.9 Gastro-esophageal reflux disease without esophagitis; F20.9 Schizophrenia, unspecified
CPT/HCPCS: 99283

== ENCOUNTER 2019-07-06 10:40 | Emergency (ER) | payer MEDICARE ==
[~2019-07-06] VITALS: Ht 172.7 cm; Wt 108.0 kg
--- OUTSIDE RECORDS SUMMARY | 2019-07-06 10:44 | XMS REPORT | Summary of Care ---
Author Author MARY Cruz, RUTHIE Organization Unknown Address Unknown Phone Unavailable Care Team Providers Care Lockstitch Hemmer Name Role Phone DE MOGRAN Verduzco, PHD, JOSEPH Unavailable Unavailable MARY Cruz, RUTHIE Unavailable Unavailable [facility] Unavailable Unavailable GUZMAN CREDIT NEGOTIATOR [place], FLORESITA Unavailable Unavailable Unavailable Unavailable Functional [...] PHD, JOSEPH * Start : 11-Feb-2017 Active traMADol HCl - 50 MG Oral Tablet TAKE 1 TABLET 3 TIMES DAILY NEEDED. * Refills: 0 Active Lyrica 50 MG Oral Capsule * Refills: 0 Active Duexis 800-26.6 MG Oral Tablet * Refills: 0 Active Sulfamethoxazole-Trimethoprim 800-160 MG Oral Tablet * Refills: 0 Active Phenix 10-325 MG Oral Tablet * Refills: 0 Active Abilify Maintena 400 MG Intramuscular Suspension Reconstituted ER Administer 1 shot every four weeks, 400 mg, to be administered at [facility] clinic * Quantity: 1 Refills: 3 RUIZ M.D., PHD, JOSEPH * Start : 01-Oct-2018 Active Abilify Maintena 400 MG Intramuscular Suspension Reconstituted ER Administer 1 shot every four weeks, 400 mg, to be administered at [facility] * Quantity: 1 Refills: 3 RUIZ M.D., [...] smoker Vital Signs Date Test Result Details No Known Vitals to report Results Date Description Value Details Results not documented Plan of Care Name Dates Details Planned Observations Planned Goals not documented Interventions Provided Plan* Psychotic episode/Schizoaffective disorder- patient has worsening auditory and visual hallucination along with paranoid thoughts. Is not sleeping do to paranoia. Instructions Name Dates Details Instructions not documented Encounters Appointment; LOGAN DRISCOLL M.D. Encounter Diagnosis: Problem [...] Problem not documented On: 11-Jun-2017 10:45 Appointment; GUZMANCELESTE WESTBROOKISE, CREDIT NEGOTIATOR Encounter Diagnosis: Problem not documented On: 25-Jun-2017 12:00 Appointment; CELESTE GUZMANISE, CREDIT NEGOTIATOR Encounter Diagnosis: Problem not documented On: 03-Jul-2017 8:45 Appointment; GUZMANCELESTE WESTBROOKISE, CREDIT NEGOTIATOR Encounter Diagnosis: Problem not documented On: 17-Jul-2017 11:00 Appointment; CELESTE GUZMANISE, CREDIT NEGOTIATOR Encounter Diagnosis: Problem not documented On: 15-Aug-2017 12:45 Appointment; FLORESITA GUZMAN, CREDIT NEGOTIATOR Encounter Diagnosis: Problem not documented On: 20-Aug-2017 8:45 Appointment; FLORESITA GUZMAN, CREDIT NEGOTIATOR Encounter Diagnosis: Problem not documented On: 27-Aug-2017 10:15 Appointment; NGHIA GRIFFIN M.D. Encounter Diagnosis: Problem not documented On: 22-Sep-2017 10:30 Appointment; FLORESITA GUZMAN LCSW Encounter Diagnosis: Problem not documented On: 13-Oct-2017 12:00 Appointment; NGHIA GRIFFIN M.D. Encounter Diagnosis: Problem not documented On: 04-Nov-2017 15:30 Appointment; LOGAN DRISCOLL M.D. Encounter Diagnosis: Problem not documented On: 13-Nov-2017 13:30 Appointment; JOHNATHON MONROE Encounter Diagnosis: Problem not documented On: 16-Dec-2017 14:00 Appointment; NGHIA GRIFFIN M.D. Encounter Diagnosis: Problem not documented On: 22-Dec-2017 8:30 Appointment; JOHNATHON MONROE Encounter Diagnosis: Problem not documented On: 14-Jan-2018 11:00 Appointment; NGHIA GRIFFIN M.D. Encounter Diagnosis: Problem not documented On: 24-Feb-2018 11:30 Appointment; NGHIA GRIFFIN M.D. Encounter Diagnosis: Problem not documented On: 25-Feb-2018 8:30 Appointment; NGHIA GRIFFIN M.D. Encounter Diagnosis: Problem not documented On: 02-Mar-2018 10:00 Appointment; JOHNATHON MONROE Encounter Diagnosis: Problem not documented On: 03-Mar-2018 17:00 Appointment; NGHIA GRIFFIN M.D. Encounter Diagnosis: Problem not documented On: 09-Mar-2018 9:00 Appointment; NGHIA GRIFFIN M.D. Encounter Diagnosis: Problem not documented On: 23-Mar-2018 10:30 Appointment; JOHNATHON MONROE Encounter Diagnosis: Problem not documented On: 07-Apr-2018 14:00 Appointment; NGHIA GRIFFIN M.D. Encounter Diagnosis: Problem not documented On: 18-May-2018 10:00 Appointment; JOHNATHON MONROE Encounter Diagnosis: Problem not documented On: 19-Jun-2018 9:00 Appointment; JOHNATHON MONROE Encounter Diagnosis: Problem not documented On: 10-Jul-2018 13:00 Appointment; NGHIA GRIFFIN M.D. Encounter Diagnosis: Problem not documented On: 21-Jul-2018 10:00 Appointment; JOHNATHON MONROE Encounter Diagnosis: Problem not documented On: 18-Aug-2018 13:00 Appointment; RUTHIE HERNANDEZ NP Encounter Diagnosis: Problem not documented On: 03-Sep-2018 12:00 Appointment; RUTHIE HERNANDEZ NP Encounter Diagnosis: Problem not documented On: 18-Sep-2018 10:30
--- NOTE | 2019-07-06 12:03 | Diagnostic Imaging Report ---
Left elbow, 3 views. History: Fall, left elbow pain. Findings: There is posterior soft tissue swelling. Bone mineralization is normal. An oblique fracture of the olecranon is present with intra-articular extension and 8 mm displacement. Remaining bones are intact. There is no dislocation. There are no lytic or sclerotic lesions. The joint spaces are within normal limits. IMPRESSION: Mildly displaced left olecranon fracture. Signed by: Toribio Villanueva on 07/06/2019 12:00 PM
[2019-07-06] MEDS ORDERED: BACITRACIN ZINC 0.9GM TP ONE (13:15)
[2019-07-06] MEDS ORDERED: HYDROCODONE/APAP 5MG-325MG TAB PO ONE (13:15)
[2019-07-06] MEDS ORDERED: TYLENOL WITH C1 EACH PO (13:58)
[2019-07-14] MEDS ORDERED: MIRTAZAPINE15 MG PO (12:55)
[2019-07-14] MEDS ORDERED: ZYPREXA5 MG PO (12:56)
[2019-07-14] MEDS ORDERED: HORIZANT600 MG PO (12:56)
[2019-07-14] MEDS ORDERED: ATIVAN1 MG (12:58)
[2019-07-14] MEDS ORDERED: BENZTROPINE MESY1 MG PO (12:58)
[2019-07-14] MEDS ORDERED: APRISO0.375 GM PO (12:59)
[2019-07-14] MEDS ORDERED: LEVOTHYROXINE100 MC1 IV (13:00)
[2019-07-14] MEDS ORDERED: PANTOPRAZOLE SO40 MG PO (13:02)
[2019-07-14] MEDS ORDERED: VITAMIN D3400 UNIT (13:05)
[2019-07-14] MEDS ORDERED: FIBER TABS625 MG PO (13:05)
== END 2019-07-06 14:35 | disposition home or self-care (01) ==
LOC: ER 10:40
DX: S52.022A Displaced fracture of olecranon process without intraarticular extension of left ulna, initial encounter for closed fracture (principal); W01.0XXA Fall on same level from slipping, tripping and stumbling without subsequent striking against object, initial encounter; Y92.008 Other place in unspecified non-institutional (private) residence as the place of occurrence of the external cause; I10 Essential (primary) hypertension; E03.9 Hypothyroidism, unspecified; K21.9 Gastro-esophageal reflux disease without esophagitis; F20.0 Paranoid schizophrenia; Z86.73 Personal history of transient ischemic attack (TIA), and cerebral infarction without residual deficits
CPT/HCPCS: 99284

== ENCOUNTER 2019-07-11 22:20 | Emergency (ER) | payer MEDICARE ==
[~2019-07-11] VITALS: Ht 172.7 cm; Wt 108.0 kg
[~2019-07-11 22:20] MED LIST: TYLENOL WITH C1 EACH PO
--- OUTSIDE RECORDS SUMMARY | 2019-07-11 22:25 | XMS REPORT ---
Author Author Alfreda Veras Organization [employer] Address Unknown Phone Unavailable Care Team Providers Care Commercial Loan Reviewer Name Role Phone Alfreda Veras CP Unavailable Allergies No Known Allergies Problems Problem Type Condition Code Onset Dates Condition Status Problem Sleep apnea syndrome G47.30 Active Problem Psychophysiological insomnia F51.04 Active Problem SOUMYA (obstructive sleep apnea) G47.33 Active Problem Restless legs G25.81 Active Problem Hypothyroidism E03.9 Active Problem Restless leg syndrome G25.81 Active Problem Obesity E66.9 Active Problem Ulcerative colitis without complications, unspecified location K51.90 Active Problem Obstructive sleep apnea (adult) (pediatric) G47.33 Active Problem Dependence on other enabling machines and devices Z99.89 Active Problem OAB (overactive bladder) N32.81 Active Problem Schizophrenia, unspecified type F20.9 Active Problem Osteoarthritis of right hip M16.11 Active Problem History of right hip replacement Z96.641 Active Problem Essential hypertension I10 Active Problem Esophageal reflux K21.9 Active Problem History of colon cancer Z85.038 Active Problem History of stroke Z86.73 Active Problem Paranoid schizophrenia F20.0 Active Problem Status post carpal tunnel release Z98.890 Active Assessment Restless leg syndrome G25.81 Active Problem History of prediabetes Z87.898 Active Problem Major depressive disorder with single episode, remission status unspecified F32.9 Active Medications Medication Code System Code Instructions Start Date End Date Status Dosage Horizant [facility] [id number] 600 MG Orally Once a day February 09, 2019 Active 1 tablet in the evening with food Results No Known Results Summary Purpose eClinicalWorks Submission
--- OUTSIDE RECORDS SUMMARY | 2019-07-11 22:25 | XMS REPORT ---
Author Author Alfreda Veras Organization [employer] Address Unknown Phone Unavailable Care Team Providers Care Candy Counter Clerk Name Role Phone Alfreda Veras CP Unavailable Allergies No Known Allergies Problems Problem Type Condition Code Onset Dates Condition Status Problem Status post carpal tunnel release Z98.890 Active Problem Sleep apnea syndrome G47.30 Active Problem Major depressive disorder with single episode, remission status unspecified F32.9 Active Problem OAB (overactive bladder) N32.81 Active Problem Schizophrenia, unspecified type F20.9 Active Problem Restless leg syndrome G25.81 Active Problem Psychophysiological insomnia F51.04 Active Problem SOUMYA (obstructive sleep apnea) G47.33 Active Problem Obstructive sleep apnea (adult) (pediatric) G47.33 Active Problem Dependence on other enabling machines and devices Z99.89 Active Problem Essential hypertension I10 Active Problem Esophageal reflux K21.9 Active Problem Obesity E66.9 Active Problem Hypothyroidism E03.9 Active Problem Paranoid schizophrenia F20.0 Active Problem History of colon cancer Z85.038 Active Problem Osteoarthritis of right hip M16.11 Active Problem History of stroke Z86.73 Active Problem History of right hip replacement Z96.641 Active Problem History of prediabetes Z87.898 Active Medications No Known Medications Results No Known Results Summary Purpose [employer] Submission
--- OUTSIDE RECORDS SUMMARY | 2019-07-11 22:25 | XMS REPORT ---
Author Author Josefina Vaca [facility] [employer] Address Unknown Phone Unavailable Care Team Providers Care Glove Former Name Role Phone Josefina Vaca CP Unavailable Allergies, Adverse Reactions, Alerts Substance Reaction Event Type Zithromax Z-Lupillo Info Not Available Drug Allergy Risperdal Info Not Available Drug Allergy Iodine Info Not Available Drug Allergy SHELLFISH Info Not Available Non Drug Allergy Problems Problem Type Condition Code Onset Dates Condition Status Assessment Restless leg syndrome G25.81 Active Problem History of stroke Z86.73 Active Assessment Other constipation K59.09 Active Problem History of prediabetes Z87.898 Active Assessment Obesity E66.9 Active Problem Status post carpal tunnel release Z98.890 Active Problem Sleep apnea syndrome G47.30 Active Problem Major depressive disorder with single episode, remission status unspecified F32.9 Active Problem OAB (overactive bladder) N32.81 Active Problem Schizophrenia, unspecified type F20.9 Active Assessment Hernia K46.9 Active Problem Restless leg syndrome G25.81 Active Assessment History of colon cancer Z85.038 Active Problem Psychophysiological insomnia F51.04 Active Problem [...] History of right hip replacement Z96.641 Active Medications Medication Code System Code Instructions Start Date End Date Status Dosage Pantoprazole Sodium [facility] [address]-73 40 mg Orally twice a day (bid) Active 1 tablet Vitamin D [facility] [address]-82 1000 UNIT Orally Once a day Active 2 tablet Lorazepam [facility] 01534625594 0.5 MG Orally every 6 hrs Active 1 tablet as needed Aripiprazole [facility] 69891285269 30 MG Orally Once a day Active 1 tablet Levothyroxine Sodium [facility] [address]-64 100 MCG Orally Once a day Active 1 tablet /2 tablet sundays Lasix ND 09631056560 20 mg Orally Once a day prn Oct 12, 2018 Active 1 [place] [address]-85 220 MG Orally every 12 hrs Active 2 tablets with food or milk as needed Sertraline HCl ND 58422023279 50 MG Orally Once a day Active 1 tablet Lyrica ND 94034311951 75 MG Orally twice a day (bid) Active (Schedule V Drug) TK ONE C PO TID Synthroid ND 05337280456 100 MCG Orally Once a day Active 1 tablet on an empty stomach in the morning , 2 on Sun Laxative [facility] [address]-34 5 MG Orally Every other day Active 2 tablets as needed Olanzapine ND 89945674492 15 MG Orally Once a day Active 1 tablet Potassium Bicarb-Citric Acid [facility] [address]-09 20 MEQ Orally Once a day Active 2 tablets Trazodone HCl [facility] [address]-14 100 mg Orally Once a day Active 2 tablets Benztropine Mesylate ND 85208135075 1 MG Oral Active TK 1 T PO QHS Horizant ND 00127397326 300 MG Orally Once a day Jan 06, 2019 Active 2 tablets in the evening with food Vital Signs Date/Time: Jan 06, 2019 BMI 37.90 Index Weight 242 lbs Height 67 in Cardiac Monitoring Heart Rate 61 /min Blood Pressure Diastolic 78 mm Hg Blood Pressure Systolic 142 mm Hg Results No Known Results Summary Purpose [employer] Submission
--- OUTSIDE RECORDS SUMMARY | 2019-07-11 22:25 | XMS REPORT | Continuity of Care Document ---
Author Author [facility] Organization [facility] Address Unknown Phone Unavailable Care Team Providers Care Hl7 Developer Name Role Phone [email or web address] Information [employer] Unavailable Unavailable Problems Problem Status Onset Date Classification Date Reported Comments Source Esophageal reflux Active Problem 06/26/2019 [facility] History of right hip replacement Active Problem 06/26/2019 [facility] Osteoarthritis of right hip Active Problem 06/26/2019 [facility] Major depressive disorder with single episode, remission status unspecified Active Problem 06/26/2019 [facility] Status post carpal tunnel release Active Problem 06/26/2019 [facility] Sleep apnea syndrome Active Problem 06/26/2019 [facility] History of stroke Active Problem 06/26/2019 [facility] History of colon cancer Active Problem 06/26/2019 [facility] Paranoid schizophrenia Active Problem 06/26/2019 [facility] History of prediabetes Active Problem 06/26/2019 [facility] Obesity Active Problem 06/26/2019 [facility] Hypothyroidism Active Problem 06/26/2019 [facility] Essential hypertension Active Problem 06/26/2019 [facility] SOUMYA (obstructive sleep apnea) Active Problem 06/26/2019 [facility] Dysuria Active Diagnosis 11/04/2017 [facility] Acute UTI Active Diagnosis 11/04/2017 [facility] Postmenopausal Active Diagnosis 06/12/2017 [facility] Snoring Active Diagnosis 06/12/2017 [facility] BMI 37.0-37.9, adult Active Diagnosis 05/30/2017 [facility] Schizophrenia Active Diagnosis 05/30/2017 [facility] Lumbar back pain Active Diagnosis 09/27/2017 [facility] Pelvic pain Active Diagnosis 09/27/2017 [facility] Encounter for screening mammogram for malignant neoplasm of breast Active Diagnosis 09/27/2017 [facility] Encntr for general adult medical exam w/o abnormal findings Active Diagnosis 09/27/2017 [facility] Encounter for screening colonoscopy Active Diagnosis 09/27/2017 [facility] Dependence on other enabling machines and devices Active Problem 06/26/2019 [facility] Psychophysiological insomnia Active Problem 06/26/2019 [facility] Obstructive sleep apnea (adult) (pediatric) Active Problem 06/26/2019 [facility] Recurrent major depressive disorder, in partial remission Active Diagnosis 01/09/2018 [facility] Facial pain Active Diagnosis 07/12/2018 [facility] Lumbar pain Active Diagnosis 07/12/2018 [facility] OAB (overactive bladder) Active Problem 06/26/2019 [facility] Dependent edema Active Diagnosis 10/17/2018 [facility] Schizophrenia, unspecified type Active Problem 06/26/2019 [facility] Acute cystitis without hematuria Active Diagnosis 10/17/2018 [facility] History of CVA (cerebrovascular accident) Active Diagnosis 10/17/2018 [facility] UTI symptoms Active Diagnosis 03/13/2018 [facility] Malignant neoplasm of colon Active Problem 03/14/2017 [facility] Other syndromes affecting cervical region Active Problem 03/14/2017 [facility] Prediabetes Active Problem 03/14/2017 [facility] Depression Active Diagnosis 04/23/2016 [facility] Migraines Active Diagnosis 04/23/2016 [facility] Excessive daytime sleepiness Active Problem 03/14/2017 [facility] Morbid obesity Active Diagnosis 04/23/2016 [facility] Body mass index (BMI) of 40.1 to 44.9 in adult Active Diagnosis 04/23/2016 [facility] Preoperative clearance Active Diagnosis 04/23/2016 [facility] Restless leg syndrome Active Problem 06/26/2019 [facility] Restless legs Active Problem 06/26/2019 [facility] Rash Active Diagnosis 03/14/2017 [facility] Ganglion cyst Active Diagnosis 03/14/2017 [facility] Dizziness Active Diagnosis 03/14/2017 [facility] Skin infection Active Diagnosis 05/22/2016 [facility] S/P hip replacement Active Diagnosis 05/22/2016 [facility] Ulcerative colitis without complications, unspecified location Active Problem 06/26/2019 [facility] Hernia Active Diagnosis 01/14/2019 [facility] Other constipation Active Diagnosis 01/10/2019 [facility] Suprapubic abdominal pain Active Diagnosis 02/06/2019 [facility] Medications Medication Details Route Status Patient Instructions Ordering Provider Order Date Source Horizant 1 tablet in the evening with food Orally Active 600 MG Orally Once a day [facility] 02/09/2019 [facility] Pramipexole Dihydrochloride 1 tablet before bedtime Orally Active 0.25 MG Orally twice a day, may increase to three time a day [facility] 01/27/2019 [facility] Gabapentin 1 capsule Orally Active 400 MG Orally Twice a day [facility] 01/20/2019 [facility] Pramipexole Dihydrochloride 1 tablet before bedtime Orally Active 0.125 MG Orally Once a day [facility] 01/20/2019 [facility] Horizant 2 tablets in the evening with food Orally Active 300 MG Orally Once a day [facility] 01/06/2019 [facility] Lasix 1 tablet Orally Active 20 mg Orally Once a day prn [facility] 10/12/2018 [facility] Bactrim DS 1 tablet Orally Active 800-160 MG Orally Twice a day Olivier Burch 09/15/2018 [facility] Bactrim DS 1 tablet Orally Active 800-160 MG Orally Twice a day Martir 03/10/2018 [facility] Macrobid 1 capsule with food Orally Active 100 mg Orally twice a day Mike 10/31/2017 [facility] Cipro 1 tablet Orally Active 250 MG Orally every 12 hrs Mikey 05/27/2017 [facility] Clindamycin HCl 1 capsule Orally Active 300 MG Orally every 8 hrs Basurto 05/17/2016 [facility] Cogentin 1 tablet at bedtime Orally Active 1 MG Orally once every night Olivier Burch [facility] Lorazepam 1 tablet as needed Orally Active 0.5 MG Orally every 6 hrs Nola [facility] Aripiprazole 1 tablet Orally Active 30 MG Orally Once a day Nola [facility] Topiramate 1 tablet Orally Active 50 MG Orally twice a day (bid) Olivier Burch [facility] VESIcare 1 tablet Orally Active 10 MG Orally Once a day Olivier Burch [facility] Aggrenox 1 capsule Orally Active 25-200 MG Orally once a day Olivier Burch [facility] Synthroid 1 tablet on an empty stomach in the morning Mon- Fri, 2 on Sun Orally Active 100 MCG Orally Once a day Vaca [facility] Multivitamin Adult not defined Orally Active - Orally Olivier [facility] Calcium 1 tab Oral Active Oral Olivier [facility] Pantoprazole Sodium 1 tablet Orally Active 40 mg Orally twice a day (bid) Nola [facility] Verapamil HCl 1 tablet Orally Active 120 MG Orally daily Olivier [facility] [place] 3 1 capsule Orally Active 120-180 MG Orally Once a day Olivier [facility] VESIcare 1 tablet Orally Active 10 MG Orally Once a day Olivier Burch [facility] Tramadol HCl 1 tablet on the tongue and allow to dissolve as needed Orally Active 50 MG Orally every four hours Olivier Burch [facility] Trazodone HCl 1 tablet at bedtime Orally Active 100 MG Orally Once a day Olivier Burch [facility] Horizant 1 tablet in the evening with food Orally Active 600 MG Orally Once a day Olivier [facility] Aggrenox 1 capsule Orally Active 25-200 MG Orally once a day Martir [facility] Pantoprazole Sodium 1 tablet Orally Active 40 MG Orally Once a day Olivier Burch [facility] Aripiprazole 1 tablet Orally Active 30 MG Orally Once a day Olivier [facility] Synthroid 1 tablet on an empty stomach in the morning Mon- Fri, 2 on Sun Orally Active 100 MCG Orally Once a day Mikey [facility] Multivitamin Adult not defined Orally Active - Orally Olivier [facility] Verapamil HCl 1 tablet Orally Active 120 MG Orally daily Olivier [facility] Topiramate 1 tablet Orally Active 50 MG Orally twice a day (bid) Olivier [facility] Lorazepam 1 tablet as needed Orally Active 0.5 MG Orally every 6 hrs Olivier [facility] Duloxetine HCl 1 capsule Orally Active 30 mg Orally once a day Oliv[facility] Lyrica (Schedule V Drug) TK ONE C PO TID Oral Active 50 mg Oral three times a day (tid) Olivier [facility] [place] Carbonate ER TK 2 TS PO HS [...] Olivier [facility] [place] Carbonate ER TK 2 TS PO HS Oral Active 300 MG Oral [facility] Benztropine Mesylate TK 1 T PO QHS Oral Active 1 MG Oral Nola [facility] Lyrica (Schedule V Drug) TK ONE C PO TID Orally Active 75 MG Orally twice a day (bid) Vaca [facility] Metoprolol Tartrate TAKE 1 T PO QAM Oral Active 25 MG Oral Olivier [facility] Trazodone HCl 2 tablets Orally Active 100 mg Orally Once a day Vaca [facility] [place] Carbonate ER TK 2 TS PO HS Oral Active 300 MG Oral Martir [facility] Topiramate 1 tablet Orally Active 50 mg Orally twice a day (bid) Martir [facility] B Complex not defined Orally Active Orally Buckley [facility] Pristiq 1 tablet Orally Active 50 MG Orally Once a day Olivier [facility] Alive Womens 50+ not defined Orally Active Orally Buckley [facility] Limbitrol 1 tablet Orally Active 5-12.5 MG Orally Twice a day [facility] Ativan 1 tablet at bedtime as needed Orally Active 0.5 MG Orally Once a day [facility] Butalbital-Acetaminophen 1 tablet as needed Orally Active 50- 325 MG Orally every 4 hrs [facility] Topamax 1 tablet at bedtime Orally Active 25 MG Orally Once a day [facility] Lexapro 1 tablet Orally Active 20 mg Orally Once a day [facility] Cogentin 1 tablet at bedtime Orally Active 1 MG Orally Once a day [facility] Trifluoperazine HCl 1 tablet Orally Active 5 MG Orally Once a day [facility] Nuedexta 1 capsule Orally No Longer Active 20-10 MG Orally every 12 hrs [facility] Benztropine Mesylate 1 tablet at bedtime Orally Active 1 MG Orally Once a day [facility] Cephalexin 1 capsule Orally Active 500 mg Orally Four times a day [facility] Hydrocodone-Acetaminophen 1 tablet as needed Orally Active 7.5- 325 MG Orally every 6 hrs [facility] Meloxicam 1 tablet Orally Active 15 MG Orally Once a day [facility] Potassium Chloride 1 capsule with food Orally Active 10 MEQ Orally Twice a day [facility] Topamax 1 tablet at bedtime Orally Active 100 MG Orally Once a day [facility] Aripiprazole 1 tablet Orally Active 10 MG Orally Once a day [facility] Zoloft 1 tablet Orally Active 50 MG Orally Once a day [facility] Topiramate 1 tablet Orally Active 100 MG Orally once every night [facility] Diazepam & Diet Manage Prod Unknown Orally Active 5 MG Orally every day (qd) [facility] Ritalin 1 tablet Orally Active 10 MG Orally Twice a day [facility] Laxative 2 tablets as needed Orally Active 5 MG Orally Every other day [facility] Sertraline HCl 1 tablet Orally Active 50 MG Orally Once a day [facility] Vitamin D 2 tablet Orally Active 1000 UNIT Orally Once a day Nola [facility] Naproxen Sodium 2 tablets with food or milk as needed Orally Active 220 MG Orally [facility] 12 [facility] Potassium Bicarb-Citric Acid 2 tablets Orally Active 20 MEQ Orally Once a day Nola [facility] Olanzapine 1 tablet Orally Active 15 MG Orally [facility] a [facility] Levothyroxine Sodium 1 tablet fri-sat / tablet sundays Orally Active 100 MCG Orally Once a [facility] Pantoprazole Sodium 1 tablet Orally Active 40 mg Orally twice a day (bid) Nola [facility] Vitamin D 2 tablet Orally Active 1000 UNIT Orally Once a day Nola [facility] Levothyroxine Sodium 1 tablet fri-sat / tablet sundays Orally Active 100 MCG Orally [facility] Naproxen Sodium 2 tablets with food or milk as needed Orally Active 220 MG Orally every 12 hrs Vaca [facility] Laxative 2 tablets as needed Orally Active 5 MG Orally Every other day [facility] Trazodone HCl 2 tablets Orally Active 100 mg Orally Once a [facility] Allergies, Adverse Reactions, Alerts Substance Category Reaction Severity Reaction type Status Date Reported Comments Source Zithromax Z-Lupillo Adverse Reaction Info Not Available Adverse Reaction Active 02/23/2019 [facility] Risperdal Adverse Reaction Info Not Available Adverse Reaction Active 02/23/2019 [facility] Iodine Adverse Reaction Info Not Available Adverse Reaction Active 02/23/2019 [facility] SHELLFISH Adverse Reaction Info Not Available Adverse Reaction Active 02/23/2019 [facility] Immunizations No Data Provided for This Section Results No Data Provided for This Section Pathology Reports No Data Provided for This Section Diagnostic Reports No Data Provided for This Section Consultation Notes No Data Provided for This Section Discharge Summaries No Data Provided for This Section History and Physicals No Data Provided for This Section Vital Signs Vital Sign Value Date Comments Source Weight 254 02/23/2019 [facility] Height 67 02/23/2019 [facility] Heart Rate 64 02/23/2019 [facility] Diastolic (mm Hg) 72 02/23/2019 [facility] Systolic (mm Hg) 126 02/23/2019 [facility] Weight 253 01/20/2019 [facility] Height 67 01/20/2019 [facility] Heart Rate 58 01/20/2019 [facility] Diastolic (mm Hg) 78 01/20/2019 [facility] Systolic (mm Hg) 142 01/20/2019 [facility] Weight 242 01/06/2019 [facility] Height 67 01/06/2019 [facility] Heart Rate 61 01/06/2019 [facility] Diastolic (mm Hg) 78 01/06/2019 [facility] Systolic (mm Hg) 142 01/06/2019 [facility] Weight 236 10/12/2018 [facility] Weight 221 10/31/2017 [facility] Height 67 10/31/2017 [facility] Heart Rate 58 10/31/2017 [facility] Diastolic (mm Hg) 65 10/31/2017 [facility] Systolic (mm Hg) 130 10/31/2017 [facility] Weight 221 10/27/2017 [facility] Height 67 10/27/2017 [facility] Heart Rate 72 10/27/2017 [facility] Diastolic (mm Hg) 62 10/27/2017 [facility] Systolic (mm Hg) 130 10/27/2017 [facility] Weight [...] & Internal [facility] Weight 241 05/27/2017 [facility] Height 67 05/27/2017 [facility] Heart Rate 62 05/27/2017 [facility] Diastolic (mm Hg) 58 05/27/2017 [facility] Systolic (mm Hg) 120 05/27/2017 [facility] Weight 244 [...] Med [facility] Diastolic (mm Hg) 78 05/17/2016 [facility] Systolic (mm Hg) 150 05/17/2016 [facility] Weight 262 04/17/2016 [facility] Height 67 04/17/2016 [facility] Heart Rate 65 04/17/2016 [facility] Diastolic (mm Hg) 78 04/17/2016 [facility] Systolic (mm Hg) 140 04/17/2016 [facility] Encounters Location Location Details Encounter Type Encounter Number Reason For Visit Attending Provider ADM Date DC Date Status Source [facility] Physical & Medical clearance [id number] 04/17/2016 04/17/2016 [facility] Physical & Medical clearance [id number] 04/17/2016 04/17/2016 [facility] Physical & Medical clearance [id number] 04/17/2016 04/17/2016 [facility] Physical & Medical clearance [id number] 04/17/2016 04/17/2016 [facility] Physical & Medical clearance [id number] 04/17/2016 04/17/2016 [facility] SX clearance [id number] 04/18/2016 04/18/2016 [facility] SX clearance [id number] 04/18/2016 04/18/2016 [facility] SX clearance [id number] 04/18/2016 04/18/[address] [facility] possible hip infection (pt had a hip replacement) [id number] 05/17/2016 05/17/[address] [facility] possible hip infection (pt had a hip replacement) [id number] 05/17/2016 05/17/[address] [facility] Severe Pain [id number] 08/23/2016 08/23/[address] [facility] Procedures No Data Provided for This Section Assessment and Plan No Data Provided for This Section Plan of Care No Data Provided for This Section Social History Social History Date Source Social History ElementQualifiersDate Reported Occupation: unemployed. DISABILITY Aug 23, 2016 Ethnicity . Status , Is faroese your primary language? Yes Aug 23, 2016 Flu Vaccine: . never, Refuse Aug 23, 2016 children . None Aug 23, 2016 Depression Screening: . negative Aug 23, 2016 Tobacco Use: . Are you a: former smoker QUIT 22YRS AGO Aug 23, 2016 Do you have pets? . Status: Yes, Type: dog(s) Aug 23, 2016 Last Colonoscopy: . 2013Aug 23, 2016 Marital Status: . , Shree Arias Aug 23, 2016 Caffeine intake? . Status: Yes, What type: Soft Drinks Aug 23, 2016 Do you exercise? . Answer: Yes, Type: walking Aug 23, 2016 Fall Risk: . 1 in past year w/o injury Aug 23, 2016 Pneumoccocal Vaccine . No Aug 23, 2016 Do you drink alcohol? . Status: No Aug 23, 2016 08/23/2016 [facility] Family History Value Date Source QualifierDescriptionCommentDate Reported Maternal Grandmother Comment not available Aug 23, 2016 Paternal Grandmother Comment not available Aug 23, 2016 Siblings Comment not available Aug 23, 2016 Maternal Grandfather Comment not available Aug 23, 2016 Children Comment not available Aug 23, 2016 Father colon cancer Aug 23, 2016 Paternal Grandfather Comment not available Aug 23, 2016 Mother leukemia Aug 23, 2016 Other: Comment not available Aug 23, 2016 08/27/2016 [facility] QualifierDescriptionCommentDate Reported Maternal Grandmother Comment not available May 17, 2016 Paternal Grandmother Comment not available May 17, 2016 Siblings Comment not available May 17, 2016 Maternal Grandfather Comment not available May 17, 2016 Children Comment not available May 17, 2016 Father colon cancer May 17, 2016 Paternal Grandfather Comment not available May 17, 2016 Mother leukemia May 17, 2016 Other: Comment not available May 17, 2016 05/22/2016 [facility] Advance Directives No Data Provided for This Section Functional Status No Data Provided for This Section
--- OUTSIDE RECORDS SUMMARY | 2019-07-11 22:25 | XMS REPORT ---
Author Author Josefina Vaca Organization [employer] Address Unknown Phone Unavailable Care Team Providers Care Bilingual Interpreter Name Role Phone Josefina Vaca CP Unavailable Allergies No Known Allergies Problems Problem Type Condition Code Onset Dates Condition Status Problem Major depressive disorder with single episode, remission status unspecified F32.9 Active Problem SOUMYA (obstructive sleep apnea) G47.33 Active Problem Sleep apnea syndrome G47.30 Active Problem Restless leg syndrome G25.81 Active Problem Obesity E66.9 Active Problem OAB (overactive bladder) N32.81 Active Problem Restless legs G25.81 Active Problem Dependence on other enabling machines and devices Z99.89 Active Problem Psychophysiological insomnia F51.04 Active Problem Schizophrenia, unspecified type F20.9 Active Problem Obstructive sleep apnea (adult) (pediatric) G47.33 Active Problem Esophageal reflux K21.9 Active Problem Osteoarthritis of right hip M16.11 Active Problem Hypothyroidism E03.9 Active Problem Essential hypertension I10 Active Problem History of prediabetes Z87.898 Active Problem History of colon cancer Z85.038 Active Problem History of right hip replacement Z96.641 Active Problem History of stroke Z86.73 Active Problem Paranoid schizophrenia F20.0 Active Problem Status post carpal tunnel release Z98.890 Active Medications Medication Code System Code Instructions Start Date End Date Status Dosage Horizant [facility] 76803641796 600 MG Orally Once a day February 09, 2019 Active 1 tablet in the evening with food Results No Known Results Summary Purpose [employer]ClinicalWorks Submission
--- OUTSIDE RECORDS SUMMARY | 2019-07-11 22:25 | XMS REPORT ---
Author Author Josefina Vaca [facility] [employer] Address Unknown Phone Unavailable Care Team Providers Care Brand Strategy Manager Name Role Phone Josefina Vaca CP Unavailable Allergies, Adverse Reactions, Alerts Substance Reaction Event Type Zithromax Z-Lupillo Info Not Available Drug Allergy Risperdal Info Not Available Drug Allergy Iodine Info Not Available Drug Allergy SHELLFISH Info Not Available Non Drug Allergy Problems Problem Type Condition Code Onset Dates Condition Status Assessment Restless leg syndrome G25.81 Active Problem Status post carpal tunnel release Z98.890 Active Assessment Osteoarthritis of right hip M16.11 Active Problem Major depressive disorder with single episode, remission status unspecified F32.9 Active Assessment Ulcerative colitis without complications, unspecified location K51.90 Active Problem Sleep apnea syndrome G47.30 Active Problem Psychophysiological insomnia F51.04 Active Problem SOUMYA (obstructive sleep apnea) G47.33 Active Problem Restless legs G25.81 Active Problem Restless leg syndrome G25.81 Active Problem Hypothyroidism E03.9 Active Problem Obesity E66.9 Active Problem Ulcerative [...] Problem History of prediabetes Z87.898 Active Medications Medication Code System Code Instructions Start Date End Date Status Dosage Laxative [facility] 35438839905 5 MG Orally Every other day Active 2 tablets as needed Vitamin D ND 26687674564 1000 UNIT Orally Once a day Active 2 tablet Lasix [facility] 60703960649 20 mg Orally Once a day prn Oct 12, 2018 Active 1 tablet Benztropine Mesylate [facility] 11342716576 1 MG Oral Active TK 1 T PO QHS Lorazepam ND 71375809296 0.5 MG Orally every 6 hrs Active 1 tablet as needed Olanzapine ND 04818256155 15 MG Orally Once a day Active 1 tablet Potassium Bicarb-Citric Acid [facility] [address]-46 20 MEQ Orally Once a day Active 2 tablets Gabapentin ND 42974862380 400 MG Orally Twice a day January 20, 2019 Inactive 1 capsule Pramipexole Dihydrochloride ND 07121544648 0.125 MG Orally Once a day January 20, 2019 Inactive 1 tablet before bedtime Pantoprazole Sodium [facility] 20493765598 40 mg Orally twice a day (bid) Active 1 tablet Trazodone HCl ND 98964555334 100 mg Orally Once a day Active 2 tablets Naproxen Sodium ND 58190951539 220 MG Orally every 12 hrs Active 2 tablets with food or milk as needed Levothyroxine Sodium [facility] 22416739355 100 MCG Orally Once a day Active 1 tablet fri-fri 1/2 tablet sundays Sertraline HCl [facility] 10792851957 50 MG Orally Once a day Active 1 tablet Horizant ND 79889724425 600 MG Orally Once a day February 09, 2019 Active 1 tablet in the evening with food Pramipexole Dihydrochloride ND 12520721465 0.25 MG Orally twice a day, may increase to three time a day January 27, 2019 Inactive 1 tablet before bedtime Vital Signs Date/Time: February 23, 2019 BMI 39.78 Index Weight 254 lbs Height 67 in Cardiac Monitoring Heart Rate 64 /min Blood Pressure Diastolic 72 mm Hg Blood Pressure Systolic 126 mm Hg Results No Known Results Summary Purpose eClinicalWorks Submission
--- OUTSIDE RECORDS SUMMARY | 2019-07-11 22:25 | XMS REPORT ---
Author Author Josefina Vaca [facility] eClinicalWorks Address Unknown Phone Unavailable Care Team Providers Care Maintenance Mechanic Millwright Name Role Phone Josefina Vaca Unavailable Allergies No Known Allergies Problems Problem [...] Start Date End Date Status Dosage Lorazepam ND 72007684764 0.5 MG Orally every 6 hrs Active 1 tablet as needed Benztropine Mesylate ND 17878051930 1 MG Oral Active TK 1 T PO QHS Laxative ND 15942090571 5 MG Orally Every other day Active 2 tablets as needed Trazodone HCl ND 53051710341 100 mg Orally Once a day Active 2 tablets Sertraline HCl ND 68948322250 50 MG Orally Once a day Active 1 tablet Pantoprazole Sodium ND 17764250371 40 mg Orally twice a day (bid) Active 1 tablet Lasix ND 54652841817 20 mg Orally Once a day prn Oct 12, 2018 Active 1 tablet Vitamin D [facility] 07877804878 1000 UNIT Orally Once a day Active 2 tablet Naproxen Sodium [facility] 57591454971 220 MG Orally every 12 hrs Active 2 tablets with food or milk as needed Potassium Bicarb-Citric Acid [facility] [address]-50 20 MEQ Orally Once a day Active 2 tablets Horizant ND 54804118948 300 MG Orally Once a day Jan 06, 2019 Active 2 tablets in the evening with food Olanzapine [facility] 57817389779 15 MG Orally Once a day Active 1 tablet Levothyroxine Sodium [facility] 79980683924 100 MCG Orally Once a day Active 1 tablet fri-fri 1/2 tablet sundays Results No Known Results Summary Purpose eClinicalWorks Submission
--- OUTSIDE RECORDS SUMMARY | 2019-07-11 22:26 | XMS REPORT ---
Author Author Josefina Vaca [facility] e[employer]Works Address Unknown Phone Unavailable Care Team Providers Care Nurse Companion Name Role Phone Josefina Vaca CP Unavailable [...] Problem OAB (overactive bladder) N32.81 Active Assessment Restless legs G25.81 Active Problem Restless legs G25.81 Active Problem [...] Problem History of stroke Z86.73 Active Assessment Suprapubic abdominal pain R10.2 Active Problem Paranoid schizophrenia F20.0 Active Problem Status post carpal tunnel release Z98.890 Active Medications Medication Code System Code Instructions Start Date End Date Status Dosage Gabapentin [facility] 71566677412 400 MG Orally Twice a day January 20, 2019 Active 1 capsule Olanzapine [facility] 60263905985 15 MG Orally Once a day Active 1 tablet Pramipexole Dihydrochloride [facility] 98605088108 0.125 MG Orally Once a day January 20, 2019 Active 1 tablet before bedtime Potassium Bicarb-Citric Acid [facility] [address]-83 20 MEQ Orally Once a day Active 2 tablets Pantoprazole Sodium [facility] 27998588551 40 mg Orally twice a day (bid) Active 1 tablet Trazodone HCl ND 27991208650 100 mg Orally Once a day Active 2 tablets Levothyroxine Sodium ND 79572907285 100 MCG Orally Once a day Active 1 tablet fri-fri 1/2 tablet sundays Sertraline HCl ND 29171793288 50 MG Orally Once a day Active 1 tablet Vitamin D ND 56737734117 1000 UNIT Orally Once a day Active 2 tablet Laxative [facility] 62295573118 5 MG Orally Every other day Active 2 tablets as needed Naproxen Sodium ND 56618815249 220 MG Orally every 12 hrs Active 2 tablets with food or milk as needed Lasix [facility] 76797003712 20 mg Orally Once a day prn Oct 12, 2018 Active 1 tablet Benztropine Mesylate [facility] 60215525997 1 MG Oral Active TK 1 T PO QHS Horizant [facility] 89823355306 300 MG Orally Once a day Jan 06, 2019 Active 2 tablets in the evening with food Lorazepam [facility] 81721657584 0.5 MG Orally every 6 hrs Active 1 tablet as needed Vital Signs Date/Time: January 20, 2019 BMI 39.62 Index Weight 253 lbs Height 67 in Cardiac Monitoring Heart Rate 58 /min Blood Pressure Diastolic 78 mm Hg Blood Pressure Systolic 142 mm Hg Results No Known Results Summary Purpose eClinicalWorks Submission
--- OUTSIDE RECORDS SUMMARY | 2019-07-11 22:26 | XMS REPORT ---
Author Author Josefina Vaca Organization [employer] Address Unknown Phone Unavailable Care Team Providers Care Ciaio Counter Molder Name Role Phone Josefina Vaca CP Unavailable [...] Start Date End Date Status Dosage Horizant [facility] 96144032831 600 MG Orally Once a day February 09, 2019 Active 1 tablet in the evening with food Results No Known Results Summary Purpose eClinicalWorks Submission
--- OUTSIDE RECORDS SUMMARY | 2019-07-11 22:26 | XMS REPORT ---
Author Author Alfreda Veras Organization [employer] Address Unknown Phone Unavailable Care Team Providers Care Chromium Plater Name Role Phone Alfreda Veras CP Unavailable [...] Instructions Start Date End Date Status Dosage Pramipexole Dihydrochloride [facility] 94948098698 0.25 MG Orally twice a day, may increase to three time a day January 27, 2019 Active 1 tablet before bedtime Results No Known Results Summary Purpose eClinicalWorks Submission
--- NOTE | 2019-07-11 22:48 | NUR ---
RAD AT BS PER MD ORDERS
--- NOTE | 2019-07-11 22:49 | NUR ---
PT REPORTS TOOK TYLENOL #3 - 1 TAB DRIVER/REFUSE COLLECTOR TO ED, REPORTS DECREASED PAIN AT THIS TIME
--- NOTE | 2019-07-11 23:28 | Diagnostic Imaging Report ---
LEFT ELBOW RADIOGRAPHS 3 VIEWS HISTORY: Pain. COMPARISON: Left elbow radiographs 3 views 07/06/2019 FINDINGS: Overlying splint limits bony detail. Bones: Increased distraction of the olecranon fracture fragment , the proximal fragment is now 1.7 cm distracted, previously was 0.8 cm distracted. Joints: The joint spaces are well-maintained. Soft tissues: Mild soft tissue swelling about the elbow. IMPRESSION: Increased distraction of the olecranon fracture fragment compared to left elbow radiograph 07/06/2019 Signed by: Augustin Zaman DO on 07/11/2019 11:24 PM
[2019-07-11 23:29] VITALS: BP 173/70
[2019-07-14] MEDS ORDERED: MIRTAZAPINE15 MG PO (12:55)
[2019-07-14] MEDS ORDERED: HORIZANT600 MG PO (12:56)
[2019-07-14] MEDS ORDERED: ZYPREXA5 MG PO (12:56)
[2019-07-14] MEDS ORDERED: ATIVAN1 MG (12:58)
[2019-07-14] MEDS ORDERED: BENZTROPINE MESY1 MG PO (12:58)
[2019-07-14] MEDS ORDERED: APRISO0.375 GM PO (12:59)
[2019-07-14] MEDS ORDERED: LEVOTHYROXINE100 MC1 IV (13:00)
[2019-07-14] MEDS ORDERED: PANTOPRAZOLE SO40 MG PO (13:02)
[2019-07-14] MEDS ORDERED: VITAMIN D3400 UNIT (13:05)
[2019-07-14] MEDS ORDERED: FIBER TABS625 MG PO (13:05)
== END 2019-07-11 23:39 | disposition home or self-care (01) ==
LOC: ER 22:20
DX: S52.022A Displaced fracture of olecranon process without intraarticular extension of left ulna, initial encounter for closed fracture (principal); W18.49XA Other slipping, tripping and stumbling without falling, initial encounter; Y92.009 Unspecified place in unspecified non-institutional (private) residence as the place of occurrence of the external cause
CPT/HCPCS: 99283

== ENCOUNTER → 2019-07-14 | Outpatient (CLI) | payer MEDICARE ==
[~2019-07-14] MED LIST changes: +APRISO0.375 GM PO; +ATIVAN1 MG; +BENZTROPINE MESY1 MG PO; +BUPIVACAINE HCL 0.5% INJ 30 ML VIAL INJ ONE; +CEFAZOLIN SOD 1 GM/NS 50ML 100 ML IV ONE; +FIBER TABS625 MG PO; +HORIZANT600 MG PO; +LEVOTHYROXINE100 MC1 IV; +MIRTAZAPINE15 MG PO; +MUPIROCIN 2% OINT 22 GM TUBE ONE; +PANTOPRAZOLE SO40 MG PO; +VITAMIN D3400 UNIT; +ZYPREXA5 MG PO
--- OUTSIDE RECORDS SUMMARY | 2019-07-14 12:13 | XMS REPORT | Continuity of Care Document ---
Author Author [employer] Organization [employer] Address Unknown Phone Unavailable Care Team Providers Care Bulldozer/Loader/Compactor/Scraper Name Role Phone CSR Information Exchange Unavailable Unavailable Problems Problem Status [...] Assoc History of stroke Active Problem 06/26/2019 [facility] History of [...] Active 600 MG Orally Once a day [facility] 02/09/2019 [facility] Pramipexole Dihydrochloride 1 tablet before bedtime Orally Active 0.25 MG Orally twice a day, may increase to three time a day [facility] 01/27/2019 [facility] Gabapentin 1 capsule Orally Active 400 MG Orally Twice a day [facility] 01/20/2019 [facility] Pramipexole Dihydrochloride 1 tablet before bedtime Orally Active 0.125 MG Orally Once a day [facility] 01/20/2019 [facility] Horizant 2 tablets in the evening with food Orally Active 300 MG Orally Once a day [facility] 01/06/2019 [facility] Lasix 1 tablet Orally Active 20 mg Orally Once a day prn [facility] 10/12/2018 [facility] [...] MG Orally every 8 hrs Basurto 05/17/2016 [facility] Cogentin 1 tablet at bedtime Orally Active 1 MG Orally once every night Olivier Burch [facility] Lorazepam 1 tablet as needed Orally Active 0.5 MG Orally every 6 hrs Nola [facility] Aripiprazole 1 tablet Orally Active 30 MG Orally Once a day Nola [facility] Topiramate 1 tablet Orally Active 50 MG Orally twice a day (bid) Olivier Burch [facility] VESIcare 1 tablet Orally Active 10 MG Orally Once a day Olivier Burch [facility] Aggrenox 1 capsule Orally Active 25-200 MG Orally once a day Olivier Burch [facility] Synthroid 1 tablet on an empty stomach in the morning Mon- Fri, 2 on Sun Orally Active 100 MCG Orally Once a day Vaca [facility] Multivitamin Adult not defined Orally Active - Orally Olivier [facility] Calcium 1 tab Oral Active Oral Olivier [facility] Pantoprazole Sodium 1 tablet Orally Active 40 mg Orally twice a day (bid) Nola [facility] Verapamil HCl 1 tablet Orally Active 120 MG Orally daily Olivier [facility] Velva 3 1 capsule Orally Active 120-180 MG [...] 25-200 MG Orally once a day Martir [facility] Pantoprazole Sodium [...] 100 MCG Orally Once a day Mikey [facility] Multivitamin Adult [...] Olivier [facility] [place] Carbonate ER TK 2 TS PO HS [...] Olivier [facility] [place] Carbonate ER TK 2 TS PO HS [...] Vaca [facility] [place] Carbonate ER TK 2 TS PO HS Oral Active 300 MG Oral Martir [facility] Topiramate 1 tablet Orally Active 50 mg Orally twice a day (bid) Martir [facility] B Complex not defined Orally Active Orally [place] [facility] Pristiq 1 tablet Orally Active 50 MG Orally Once a day Olivier [facility] Alive Womens 50+ not defined Orally Active Orally [place] [facility] Limbitrol 1 tablet Orally Active 5-12.5 MG Orally Twice a day [facility] Ativan 1 tablet at bedtime as needed Orally Active 0.5 MG Orally Once a day [facility] Butalbital-Acetaminophen 1 tablet as needed Orally Active 50- 325 MG Orally every 4 hrs [facility] Topamax 1 tablet at bedtime Orally Active 25 MG Orally Once a day [facility] Lexapro 1 tablet Orally Active 20 mg Orally Once a day [facility] Cogentin 1 tablet at bedtime Orally Active 1 MG Orally Once a day [facility] Trifluoperazine HCl 1 tablet Orally Active 5 MG Orally Once a day [facility] Nuedexta 1 capsule Orally No Longer Active 20-10 MG Orally every 12 hrs [facility] Benztropine Mesylate 1 tablet at bedtime Orally Active 1 MG Orally Once a day [facility] Cephalexin 1 capsule Orally Active 500 mg Orally Four times a day [facility] Hydrocodone-Acetaminophen 1 tablet as needed Orally Active 7.5- 325 MG Orally every 6 hrs [facility] Meloxicam 1 tablet Orally Active 15 MG Orally Once a day [facility] Potassium Chloride 1 capsule with food Orally Active 10 MEQ Orally Twice a day [facility] Topamax 1 tablet at bedtime Orally Active 100 MG Orally Once a day [facility] Aripiprazole 1 tablet Orally Active 10 MG Orally Once a day [facility] Zoloft 1 tablet Orally Active 50 MG Orally Once a day [facility] Topiramate 1 tablet Orally Active 100 MG Orally once every night [facility] Diazepam & Diet Manage Prod Unknown Orally Active 5 MG Orally every day (qd) [facility] Ritalin 1 tablet Orally Active 10 MG Orally Twice a day [facility] Laxative 2 tablets as needed Orally Active 5 MG Orally Every other day [facility] Sertraline HCl 1 tablet Orally Active 50 MG Orally Once a day [facility] Vitamin D 2 tablet Orally Active 1000 UNIT Orally Once a day Nola [facility] Naproxen Sodium 2 tablets with food or milk as needed Orally Active 220 MG Orally every 12 hrs [facility] Potassium Bicarb-Citric Acid 2 tablets Orally Active 20 MEQ Orally Once a day Nola [facility] Olanzapine 1 tablet Orally Active 15 MG Orally [facility] a [facility] Levothyroxine Sodium 1 tablet fri-sat / tablet sundays Orally Active 100 MCG Orally [facility] a [facility] Pantoprazole Sodium 1 tablet Orally Active 40 mg Orally twice a day (bid) Nola [facility] Vitamin D 2 tablet Orally Active 1000 UNIT Orally Once a day Noal [facility] Levothyroxine Sodium 1 tablet fri-sat / tablet sundays Orally Active 100 MCG Orally [facility] Naproxen Sodium 2 tablets with food or milk as needed Orally Active 220 MG Orally every 12 hrs Vaca [facility] Laxative 2 tablets as needed Orally Active 5 MG Orally Every other day [facility] Trazodone HCl 2 tablets Orally Active 100 mg Orally Once a day [facility] Allergies, Adverse Reactions, Alerts Substance Category Reaction Severity Reaction type Status Date Reported Comments Source Zithromax Z-Lupillo Adverse Reaction Info Not Available Adverse Reaction Active 02/23/2019 [facility] Risperdal Adverse Reaction Info Not Available Adverse Reaction Active 02/23/2019 [facility] Iodine Adverse Reaction Info Not Available Adverse Reaction Active 02/23/2019 [facility] SHELLFISH Adverse Reaction Info Not Available Adverse Reaction Active 02/23/2019 [facility] Immunizations No Data Provided for This [...] Value Date Comments Source Weight 254 02/23/2019 [facility] Height 67 02/23/2019 [...] Provider ADM Date DC Date Status Source [facility] Physical & Medical clearance [id number] 04/17/2016 04/17/2016 [facility] Physical & Medical clearance [id number] 04/17/2016 04/17/2016 [facility] Physical & Medical clearance [id number] 04/17/2016 04/17/2016 [facility] Physical & Medical clearance [id number] 04/17/2016 04/17/2016 [facility] Physical & Medical clearance [id number] 04/17/2016 04/17/2016 [facility] SX clearance [id number] 04/18/2016 04/18/2016 [facility] SX clearance [id number] 04/18/2016 04/18/2016 [facility] SX clearance [id number] 04/18/2016 04/18/2016 [facility] possible hip infection (pt had a hip replacement) [id number] 05/17/2016 05/17/2016 [facility] possible hip infection (pt had a hip replacement) [id number] 05/17/2016 05/17/2016 [facility] Severe Pain [id number] 08/23/2016 08/23/2016 [facility] Procedures No Data Provided for This Section Assessment and Plan No Data Provided for This Section Plan of Care No Data Provided for This Section Social History Social History Date Source Social History ElementQualifiersDate Reported Occupation: unemployed. DISABILITY Aug 23, 2016 Ethnicity . Status , Is sami your primary language? Yes Aug 23, 2016 [...] . Status: No Aug 23, 2016 08/23/2016 [facility] Family History [...] Comment not available Aug 23, 2016 08/27/2016 [facility] QualifierDescriptionCommentDate Reported [...] Comment not available May 17, 2016 05/22/2016 [facility] Advance Directives No Data Provided for This Section Functional Status No Data Provided for This Section
[2019-07-14 13:47] LABS: BASOPHILS # (AUTO) 0.1 (0.0-0.1); BASOPHILS % 0.7 % (0.0-1.0); EOSINOPHILS # (AUTO) 0.1 (0.0-0.4); HEMATOCRIT 36.5 % (34.2-44.1); HEMOGLOBIN 11.9 g/dL (12.0-16.0); LYMPHOCYTES # (AUTO) 1.4 (1.0-3.2); LYMPHOCYTES % 20.4 % (18.0-39.1); MEAN CORPUSCULAR HEMOGLOBIN 28.5 pg (28-32); MEAN CORPUSCULAR HGB CONC 32.6 g/dL (31-35); MEAN CORPUSCULAR VOLUME 87.5 fL (81-99); MONOCYTES # (AUTO) 0.9 (0.2-0.8); MONOCYTES % 12.8 % (4.4-11.3); NEUTROPHILS # (AUTO) 4.4 (2.1-6.9); NEUTROPHILS % 64.8 % (38.7-80.0); PLATELET COUNT 231 x10e3/uL (140-360); RED BLOOD COUNT 4.17 x10e6/uL (3.6-5.1); RED CELL DISTRIBUTION WIDTH 14.4 % (11.7-14.4)
== END | disposition home or self-care (01) ==
LOC: RAD 12:10 → OR 12:10 → EDSTATUS 14:00
PROVIDERS: ATTEND Orthopaedic Surgery
DX: S52.032A Displaced fracture of olecranon process with intraarticular extension of left ulna, initial encounter for closed fracture (principal); Z53.09 Procedure and treatment not carried out because of other contraindication
CPT/HCPCS: 36415; 85025; 93005; J0690

== ENCOUNTER 2019-12-29 12:06 | Emergency (ER) | payer MEDICARE ==
[~2019-12-29] VITALS: Ht 172.7 cm; Wt 108.0 kg
[~2019-12-29 12:06] MED LIST changes: -BUPIVACAINE HCL 0.5% INJ 30 ML VIAL INJ ONE; -CEFAZOLIN SOD 1 GM/NS 50ML 100 ML IV ONE; -MUPIROCIN 2% OINT 22 GM TUBE ONE
--- OUTSIDE RECORDS SUMMARY | 2019-12-29 12:11 | XMS REPORT | Summary of Care ---
Author Author RUIZ M.D., PHD, JOSEPH Organization Unknown Address [facility] Phone Unavailable Care Team Providers Care Llama Farmer Name Role Phone RUIZ M.D., PHD, JOSEPH Unavailable Unavailable MARITZA RODRIGUEZ Unavailable Unavailable GUZMAN MANUFACTURING OPERATOR [place], FLORESITA Unavailable Unavailable Unavailable Unavailable Functional [...] MG Oral Tablet * Refills: 0 Active [place] 10-325 MG Oral Tablet * Refills: 0 Active Abilify Maintena 400 MG Intramuscular Suspension Reconstituted ER Administer 1 shot every four weeks, 400 mg, to be administered at [facility] clinic * Quantity: 1 Refills: 3 RUIZ M.D., PHD, JOSEPH * Start : 01-Oct-2018 Active Abilify Maintena 400 MG Intramuscular Suspension Reconstituted ER Administer 1 shot every four weeks, 400 mg, to be administered at [facility] clinic * Quantity: 1 Refills: 3 RUIZ [...] Observations Planned Goals not documented Interventions Provided Medication Changes* Abilify Maintena 400 MG Intramuscular Suspension Reconstituted ER - Renew * Abilify Maintena 400 MG Intramuscular Suspension Reconstituted ER - Start * ARIPiprazole 30 MG Oral Tablet - Renew Instructions* Patient Specific Education Given; Done: 20 Oct 2018 Plan* Discussed diagnosis, differential diagnosis, co morbidities, bio psychosocial factors, predisposing, precipitating and maintaining symptoms - Continue Abilify 30 mg daily * - Continue Abilify Maintena 400 mg, one shot administered here today, next shot in 4 weeks * - RTC 4 weeks. Discussion/Summary* Progress made toward Goal actively participated. * Discussed the following with patient/family/other who verbally acknowledged and agrees to comply. Safety issues, Patient understands and will comply. Bio-psychosocial factors. Co-Morbidities. Differential diagnosis. Emergency treatment. Maintaining symptoms. Predisposing symptoms. Precipating symptoms. Safety plan. Alternative medication(s). Current medication(s). Risks/benefits. Side effects. Target symptoms. Diagnosis. follow-up 4 WEEKS SCHIZOPHRENIA Instructions Name Dates Details Instructions not documented Encounters Appointment; FLORESITA GUZMAN LCSW Encounter Diagnosis: Problem [...] Diagnosis: Problem not documented On: 18-Sep-2018 10:30 Appointment; JOSEPH RUIZ M.D.|PHD Encounter Diagnosis: Problem not documented On: 01-Oct-2018 15:00 Appointment; JOSEPH RUIZ M.D.|PHD Encounter Diagnosis: Problem not documented On: 19-Oct-2018 13:00"
[2019-12-29] MEDS ORDERED: SODIUM CHLORIDE 0.9% 1000ML 1,000 ML IV STA (12:30)
[2019-12-29 13:50] LABS: BASOPHILS % 0.5 % (0.0-1.0); EOSINOPHILS # (AUTO) 0.1 (0.0-0.4); EOSINOPHILS % 0.8 % (0.0-6.0); HEMATOCRIT 38.7 % (34.2-44.1); HEMOGLOBIN 12.8 g/dL (12.0-16.0); LYMPHOCYTES # (AUTO) 2.1 (1.0-3.2); LYMPHOCYTES % 33.4 % (18.0-39.1); MEAN CORPUSCULAR HGB CONC 33.1 g/dL (31-35); MEAN CORPUSCULAR VOLUME 87.8 fL (81-99); MONOCYTES # (AUTO) 0.9 (0.2-0.8); MONOCYTES % 14.1 % (4.4-11.3); NEUTROPHILS # (AUTO) 3.3 (2.1-6.9); PLATELET COUNT 233 x10e3/uL (140-360); RED BLOOD COUNT 4.41 x10e6/uL (3.6-5.1); RED CELL DISTRIBUTION WIDTH 14.6 % (11.7-14.4)
--- NOTE | 2019-12-29 13:56 | Diagnostic Imaging Report ---
Exam: Chest radiograph Clinical History: Respiratory difficulty Findings: The cardiomediastinal silhouette and lungs are normal. The regional skeleton and soft tissue are unremarkable. There is no evidence of pleural effusion or pneumothorax. Impression: No radiographic evidence of acute cardiopulmonary disease. Signed by: Dr. Jose Maria Monahan MD on 12/29/2019 1:53 PM
[2019-12-29 14:16] LABS: ALANINE AMINOTRANSFERASE 13 IU/L (0-55); ALBUMIN 3.7 g/dL (3.5-5.0); ALBUMIN/GLOBULIN RATIO 1.4 (0.8-2.0); ALKALINE PHOSPHATASE 112 IU/L (40-150); ANION GAP 17.5 mmol/L (8-16); BLOOD UREA NITROGEN 7 mg/dL (7-26); BUN/CREATININE RATIO 9 (6-25); CALCIUM 9.2 mg/dL (8.4-10.2); CARBON DIOXIDE 18 mmol/L (22-29); CHLORIDE 99 mmol/L (98-107); CREATINE KINASE 100 IU/L (29-168); CREATININE, SERUM 0.81 mg/dL (0.57-1.11); EST GLOMERULAR FILTRATION RATE > 60 ML/MIN (60-); GLUCOSE 93 mg/dL (74-118); LIPASE 27 U/L (8-78); MAGNESIUM 1.9 MG/DL (1.3-2.1); POTASSIUM 4.5 mmol/L (3.5-5.1); SODIUM 130 mmol/L (136-145)
[2019-12-29 14:48] LABS: THYROID STIMULATING HORMONE 0.473 uIU/mL (0.350-4.940)
[2019-12-29 15:05] LABS: CLARITY,URINE CLEAR (CLEAR); COLOR,URINE YELLOW (YELLOW)
[2019-12-29 15:06] LABS: BILIRUBIN,URINE NEGATIVE (NEGATIVE); KETONES,URINE NEGATIVE (NEGATIVE); LEUKOCYTE ESTERASE ,URINE 2+ (NEGATIVE); NITRITE,URINE NEGATIVE (NEGATIVE); PROTEIN,URINE DIPSTICK NEGATIVE (NEGATIVE); URINE UROBILINOGEN 0.2 mg/dL (0.2 - 1)
[2019-12-29 15:21] LABS: BACTERIA,URINE MANY /HPF; EPITHELIAL CELLS,URINE MODERATE /LPF
[2019-12-29] MEDS ORDERED: SODIUM CHLORIDE 0.9% 1000ML 1,000 ML ONE (16:32)
[2019-12-29] MEDS ORDERED: CEFTRIAXONE SOD 1 GM/NS 50 ML 50 ML IV ONE (17:15)
== END 2019-12-29 18:47 | disposition home or self-care (01) ==
LOC: ER 12:06
DX: E87.1 Hypo-osmolality and hyponatremia (principal); N39.0 Urinary tract infection, site not specified; I10 Essential (primary) hypertension; K21.9 Gastro-esophageal reflux disease without esophagitis; E03.9 Hypothyroidism, unspecified; F20.0 Paranoid schizophrenia; Z86.73 Personal history of transient ischemic attack (TIA), and cerebral infarction without residual deficits
CPT/HCPCS: 36415; 71045; 80053; 81001; 82550; 82553; 83690; 83735; 83880; 84300; 84443; 84484; 85025; 87086; 99284; J7030

== ENCOUNTER 2020-01-10 13:40 | Emergency (ER) | payer MEDICARE ==
[~2020-01-10] VITALS: Ht 172.7 cm; Wt 108.0 kg
--- NOTE | 2020-01-10 13:44 | NUR ---
PATIENT CALLED FOR TRIAGE AND DID NOT ANSWER - PATIENT REPORTED TO BE IN THE RESTROOM AT THIS TIME
--- OUTSIDE RECORDS SUMMARY | 2020-01-10 13:44 | XMS REPORT | Summary of Care ---
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 * Refills: 0 Active Lyrica 50 MG Oral Capsule * Refills: 0 Active Duexis 800-26.6 MG Oral Tablet * Refills: 0 Active Sulfamethoxazole-Trimethoprim 800-160 MG Oral Tablet * Refills: 0 Active [place] 10-325 MG Oral Tablet * Refills: 0 Active Abilify Maintena 400 MG Intramuscular Suspension Reconstituted ER Administer 1 shot every four weeks, 400 mg, to be administered at [facility] clinic * Quantity: 1 Refills: 3 RUIZ M.D., PHD, JOSEPH * Start : 01-Oct-2018 Active Abilify Maintena 400 MG Intramuscular Suspension Reconstituted ER Administer 1 shot every four weeks, 400 mg, to be administered at [facility] * Quantity: 1 Refills: 3 RUIZ M.D., [...] Details Planned Observations Planned Goals not documented Planned Encounters Appointment; TAMARA MENCHACA M.D. On: 03-Jan-2020 14:00 Interventions Provided Plan* 1. HTN * - Continue Verapamil 120 * 2. Pre syncope * - SEEK and Echo TTE normal * - seeing neurologist for EEG and Carotid Us pending results * - SEEK negative for Afib/SVT * 3. Follow up in 6 mos Discussion/Summary* Clinical cardiac findings reviewed and discussed. Instructions Name Dates Details Instructions not documented Encounters Appointment; JOHNATHON MONROE Encounter Diagnosis: Problem not [...] Encounter Diagnosis: Problem not documented On: 19-Oct-2018 13:00 Appointment; TAMARA MENCHACA M.D. Encounter Diagnosis: Problem not documented On: 03-Jan-2020 14:00"
--- OUTSIDE RECORDS SUMMARY | 2020-01-10 13:45 | XMS REPORT | Summary of Care ---
Author Author BERNARDA Verduzco, TAMARA Organization Unknown Address Unknown Phone Unavailable Care Team Providers Care Director Of Corporate Marketing Name Role Phone TAMARA MENCHACA M.D. Unavailable Unavailable ERIN ARNDT, HERON BAILEY Unavailable Unavailable THOMAS WATER/WASTEWATER ENGINEER [place], FLORESITA Unavailable Unavailable [facility] Unavailable Unavailable Unavailable Unavailable Functional Status Name Dates Details Functional status health issues are not documented Status: Name Dates Details Cognitive status health issues are not documented Status: Problems Name Dates Details Dizziness (780.4, R42) Status: Active Excessive daytime sleepiness (780.54, G47.19) Status: Active Obstructive sleep apnea (327.23, G47.33) Status: Active Painful hip (719.45, M25.559) Status: Active Preoperative clearance (V72.84, Z01.818) Status: Active Thyroid disorder (246.9, E07.9) Status: Active 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 * Quantity: 90 Refills: 1 Active Benztropine Mesylate 1 MG Oral Tablet TAKE 1 TABLET AT BEDTIME. * Refills: 0 Active Furosemide 20 MG Oral Tablet TAKE 1 TABLET BY MOUTH DAILY * Quantity: 90 Refills: 1 Active Rexulti 4 MG Oral Tablet * Refills: 0 Active Pantoprazole Sodium 40 MG Oral Tablet Delayed Release TAKE 1 TABLET BY MOUTH ONCE DAILY * Quantity: 90 Refills: 1 Active Levothyroxine Sodium 100 MCG Oral Tablet * Refills: 0 Active Horizant 600 MG TB24 * Refills: 0 Active traZODone HCl - 300 MG Oral Tablet * Refills: 0 Active Vitamin D3 TABS * Refills: 0 Active Allergies and Adverse Reactions Name Dates Details RisperDAL TABS (Allergy) Status: Active Shellfish-derived Products (Allergy) Status: Active Past Medical History Name Dates Details History of Colon Cancer (V10.05) Status: Resolved History of Depressive disorder (311, F32.9) Status: Resolved History of esophageal reflux (V12.79, Z87.19) Status: Resolved History of Schizophrenia (V11.0) Status: [...] smoker Vital Signs Date Test Result Details [id number] BP Systolic 147 mm[Hg] Status: Comments: Location: LUE; Position: Sitting BP Diastolic 88 mm[Hg] Status: Comments: Location: LUE; Position: Sitting Height 68 in Status: Weight 281 lb Status: Body Mass Index Calculated 42.73 kg/m2 Status: Body Surface Area Calculated 2.36 m2 Status: Heart Rate 69 /min Status: Results Date Description Value Details Results not documented Plan of Care Name Dates Details Planned Observations Planned Goals not documented Planned Encounters Appointment; TAMARA MENCHACA M.D. On: 03-Jul-2020 14:30 Interventions Provided Plan* # Coronary artery disease evaluation * - Asymptomatic * - Prior nuclear stress test on 06/01/2010 demonstrated normal perfusion * - Continue aggressive cardiac risk factor modification * # Hypertension * - Continue current therapy; blood pressure log for 1 week. Will add/adjust as needed * - Blood pressure goal < 130/80 mmHg * - Sodium-restricted, heart healthy diet * # Dyslipidemia * - Will need updated lipid panel Discussion/Summary* Clinical cardiac findings reviewed and discussed. [...]
[2020-01-10] MEDS ORDERED: SODIUM CHLORIDE 0.9% 1000ML 1,000 ML IV STA (14:48)
[2020-01-10] MEDS ORDERED: ONDANSETRON HCL INJ 2MG/ML 2ML 2 MG/ML VIAL IV STA (14:48)
[2020-01-10] MEDS ORDERED: PANTOPRAZOLE 40 MG 10ML VIAL IV STA (14:48)
[2020-01-10 15:07] LABS: CLARITY,URINE SL CLOUDY (CLEAR); COLOR,URINE YELLOW (YELLOW)
[2020-01-10 15:08] LABS: BILIRUBIN,URINE NEGATIVE (NEGATIVE); KETONES,URINE NEGATIVE (NEGATIVE); LEUKOCYTE ESTERASE ,URINE TRACE (NEGATIVE); NITRITE,URINE NEGATIVE (NEGATIVE); PROTEIN,URINE DIPSTICK 1+ (NEGATIVE); URINE UROBILINOGEN 0.2 mg/dL (0.2 - 1)
[2020-01-10 15:23] LABS: BACTERIA,URINE FEW /HPF; EPITHELIAL CELLS,URINE FEW /LPF; RBC,URINE 0-5 /HPF (0-5)
[2020-01-10 15:23] LABS: BASOPHILS % 0.3 % (0.0-1.0); EOSINOPHILS % 0.3 % (0.0-6.0); HEMOGLOBIN 14.4 g/dL (12.0-16.0); LYMPHOCYTES # (AUTO) 1.7 (1.0-3.2); LYMPHOCYTES % 21.5 % (18.0-39.1); MEAN CORPUSCULAR HEMOGLOBIN 29.2 pg (28-32); MEAN CORPUSCULAR HGB CONC 33.5 g/dL (31-35); MEAN CORPUSCULAR VOLUME 87.2 fL (81-99); MONOCYTES # (AUTO) 0.8 (0.2-0.8); MONOCYTES % 10.4 % (4.4-11.3); NEUTROPHILS # (AUTO) 5.3 (2.1-6.9); NEUTROPHILS % 67.2 % (38.7-80.0); PLATELET COUNT 245 x10e3/uL (140-360); RED BLOOD COUNT 4.93 x10e6/uL (3.6-5.1); RED CELL DISTRIBUTION WIDTH 14.6 % (11.7-14.4)
[2020-01-10 15:39] LABS: ALBUMIN 3.9 g/dL (3.5-5.0); ALBUMIN/GLOBULIN RATIO 1.3 (0.8-2.0); ANION GAP 14.4 mmol/L (8-16); CALCIUM 9.5 mg/dL (8.4-10.2); CREATININE, SERUM 1.03 mg/dL (0.57-1.11); MAGNESIUM 1.8 MG/DL (1.3-2.1); POTASSIUM 4.4 mmol/L (3.5-5.1)
== END 2020-01-10 17:20 | disposition home or self-care (01) ==
LOC: ER 13:40
DX: R10.84 Generalized abdominal pain (principal); R11.2 Nausea with vomiting, unspecified; R19.7 Diarrhea, unspecified; N30.90 Cystitis, unspecified without hematuria
CPT/HCPCS: 36415; 80053; 81001; 83735; 85025; 87086; 99284; C9113; J2405; J7030